=== PATIENT | male | born 1955 | race Caucasian/White ===

== ENCOUNTER 2017-08-29 07:17 | Day surgery (SDC) | payer MEDICAID ==
[2017-08-29] MEDS ORDERED: Lactated Ringers 1,000 ML IV SCH (07:30)
[2017-08-29] MEDS ORDERED: Propofol 200 MG/20 ML SDV ONE (08:39)
[2017-08-29] MEDS ORDERED: fentaNYL 100 MCG/2 ML SDV ONE (08:39)
[2017-08-29] MEDS ORDERED: Midazolam 1 MG/ML 2 ML SDV ONE (08:39)
[2017-08-29] MEDS ORDERED: Sodium Phosphate,Monobasic/Sodium Phosphate,Dibasic Enema 133 ML Bottle RECTAL ONE (09:00)
[2017-08-29] MEDS: Potassium Chloride 20 MEQ Tab.ER PO SCH ×2 (09:47→14:37)
[2017-08-29] MEDS: Potassium Chloride 20 MEQ, Lidocaine 1% 2 ML in Sodium Chloride 0.9% 100 ML IV SCH ×2 (10:08→12:26)
[2017-08-29] MEDS ORDERED: Iohexol 300 MG/ML 30 ML Bottle PO ONE (11:39)
[2017-08-29] MEDS ORDERED: Iopamidol 612 MG/ML 100 ML Bottle IV PRN (11:39)
[2017-08-29] MEDS ORDERED: Sodium Chloride 0.9% 10 ML Syringe FLUSH PRN (11:39)
--- NOTE | 2017-08-29 12:18 | CT ---
Chest, abdomen, pelvis CT. History: Rectal mass. Technique: IV and oral contrast were administered followed by axial imaging from the lung apices exte nding to the chest, abdomen, and pelvis. Coronal images were reconstructed. Total DLP: 993. Comparison: None Findings: Chest: There is a 4 mm pulmonary nodule of the of the right upper lobe anteriorly. The nodule is seen on image 51, series 3. There are left hilar calcified granulomas. No additional nodules are seen. Th ere are no infiltrates or effusions. There is no mediastinal or hilar adenopathy. Abdomen pelvis: There is a large mass demonstrated centrally within the pelvis. The mass abuts an are a of irregular wall thickening involving the left lateral margin of the rectum. The exophytic mass me asures 11.0 x 8.8 x 10.3 cm. The mass is complex. There is heterogeneity with areas of enhancement as well as low attenuation regions. Small collections of air may be within bowel. Contained perforation with abscess cannot be excluded. The appendix is normal. There is no free air. There is mild ascites with fluid accumulating along the lateral margin of the liver. There are no focal hepatic lesions. There is splenomegaly. The spleen measures 18.3 cm. The gallbladd er is unremarkable. The pancreas appears unremarkable. The adrenal glands are normal in size. The kid neys demonstrate symmetric excretion of contrast. There is retroperitoneal adenopathy. The largest no agus lie posterior to the uncinate process of the pancreas. The largest node measures 3.2 cm. No skele celestino lesions are seen. Impression: 1. Wall thickening of the rectum. Contiguous with the wall thickening is a large complex mass with co llections of fluid as well as small pockets of air. The finding may reflect a necrotic neoplasm of th e colon. A contained perforation as well as abscess formation cannot be excluded. The presence of abn ormal enlarged retroperitoneal lymph nodes are highly suspicious for a metastatic malignant process. 2. Mild ascites.
--- NOTE | 2017-08-29 15:17 | OR ---
DATE OF PROCEDURE: 08/29/2017 PREOPERATIVE DIAGNOSES: Diarrhea and weight loss. POSTOPERATIVE DIAGNOSES: Near obstructing rectal tumor, poor colonoscopy prep, diarrhea, and weight loss. PROCEDURES: Attempted colonoscopy into the sigmoid colon, poor colonoscopy prep precluded going higher, and biopsy of near obstructing rectal tumor. SURGEON: En Grande MD. ANESTHESIA: IV anesthesia with monitored anesthesia care. INDICATION: This 62-year-old white male has never had a colonoscopic exam. He is here for his first colonoscopy, he says, because of diarrhea and weight loss. He also has some abdominal discomfort. He did not tolerate the prep well. He says he vomited about a third of it. We gave him a Fleet enema prior to bringing him back for his colonoscopy. I counseled him for a colonoscopy with possible biopsy and/or polypectomy including risks and alternatives, and he gave his informed consent to proceed. DESCRIPTION OF PROCEDURE: The patient was placed in the left lateral decubitus position. IV anesthesia was administered by the Anesthesia Service. Time-out was held. A rectal exam was performed, which was unremarkable. The flexible video Olympus colonoscope was introduced through his anus and up his rectum to a near-obstructing tumor. We were able to get above it, but encountered a wall of stool. We were only able to get into the sigmoid colon because of this. The scope was then withdrawn. We washed off the tumor and then biopsied it. We tattooed the distal end of the tumor. It appeared this was about 5 cm up from the anal verge. The scope was retroflexed in the rectum with the distal rectum appearing unremarkable. The scope was straightened and removed. He tolerated the procedure well. We will obtain CBC, CMP, CEA, CT scan of chest, abdomen and pelvis, and then proceed from there. En Grande MD /[id number] [facility]
== END 2017-08-29 15:20 | disposition home or self-care (01) ==
LOC: JP.SDS 07:17
PROVIDERS: ATTEND Surgery
DX: D12.8 Benign neoplasm of rectum (principal); E11.9 Type 2 diabetes mellitus without complications
CPT/HCPCS: 36415; 45331; 45335; 71260; 74177; 80053; 82378; 84132; 85027; 86850; 86900; 86901; 88305; A9270; J2250; J2704; J3010; J3480; J7030; J7050; J7120; Q9965; Q9967

== ENCOUNTER 2017-09-05 08:58 | Day surgery (SDC) | payer MEDICAID ==
[2017-09-05] MEDS ORDERED: Sodium Phosphate,Monobasic/Sodium Phosphate,Dibasic Enema 133 ML Bottle RECTAL ONE (09:30)
[2017-09-05] MEDS ORDERED: Dextrose 5%-Lactated Ringers 1,000 ML IV SCH (09:45)
[2017-09-05] MEDS ORDERED: Propofol 200 MG/20 ML SDV ONE (10:00)
--- NOTE | 2017-09-09 09:17 | OR ---
DATE OF PROCEDURE: 09/05/2017 PREOPERATIVE DIAGNOSIS: Rectal carcinoma. POSTOPERATIVE DIAGNOSIS: Rectal carcinoma. OPERATIVE PROCEDURE: Flexible sigmoidoscopy with: 1. Biopsies of probable rectal carcinoma (27142). 2. Excision of a portion of probable sigmoid carcinoma by snare technique (10978). ANESTHESIA: IV sedation. INDICATIONS FOR PROCEDURE: A 62-year-old presenting with a recently identified rectal mass, which is almost certainly a carcinoma. His initial biopsies came short of diagnosing carcinoma per se. Given this, to provide a definitive histologic evaluation, the patient is to undergo a flexible sigmoidoscopy with additional biopsies. Potential risks of the procedure including bleeding and perforation were discussed, and the patient wishes to proceed. DETAILS OF PROCEDURE: The patient was taken to the operating room and placed in a left lateral decubitus position. IV sedation was administered. The initial digital rectal exam was remarkable in that, even with IV sedation, the mass could not be palpated. The scope was then passed into the rectum, and at roughly 10 cm from the dentate line, the lower end of the mass was identified. This visually occluded the entire lumen. The scope could be passed around the edge of this into the area above the tumor; however, the tumor had variable amounts of necrosis on its surface. At that point, multiple biopsies were obtained from various points within the mass. There was one large polypoid extension of the mass, which was then encircled with cautery snare and excised by that means. As this was evacuated, it more or less obliterated into multiple small pieces, but this all should be good tissue for histologic review. No significant bleeding was noted at the conclusion of the procedure. It is notable that the mass begins around 10 cm above the dentate line. Given this, with preoperative chemoradiation treatment, this should certainly be a lesion that can be resected with a primary anastomosis. The plan at this point will be to set the patient up to see Medical Oncology this coming Friday. This has already been scheduled, and as discussed with Dr. Fe Perez of the Medical Oncology Department in [place], we will likely initiate early chemotherapy, which hopefully will obviate the need for any diverting colostomy prior to the chemoradiation therapy being completed. Geovanni Malik MD /[id number]
== END 2017-09-05 12:18 | disposition home or self-care (01) ==
LOC: JP.SDS 08:58
PROVIDERS: ATTEND Surgery
DX: C20 Malignant neoplasm of rectum (principal); E11.9 Type 2 diabetes mellitus without complications
CPT/HCPCS: 45331; 45338; 88305; A9270; J2704; J7042

== ENCOUNTER 2017-09-11 07:14 | Inpatient (IN) | payer MEDICAID ==
[~2017-09-11 07:14] MED LIST: Acetaminophen 500 MG Tab PO ONE; Bupivacaine 0.5% 50 ML MDV ONE; Celecoxib 200 MG Cap PO ONE; Lidocaine 1% with EPINEPHrine 1:100,000 50 ML MDV ONE; Scopolamine 1.5 MG Transdermal Patch TRDERM SCH
[2017-09-11] MEDS ORDERED: Dextrose 5%-Lactated Ringers 1,000 ML IV SCH (07:30)
[2017-09-11] MEDS ORDERED: cefOXitin 2 GM in Sodium Chloride 0.9% 50 ML IV ONE (08:45)
[2017-09-11] MEDS ORDERED: Succinylcholine 200 MG/10 ML MDV ONE (08:50)
[2017-09-11] MEDS ORDERED: Rocuronium 50 MG/5 ML Vial ONE (08:50)
[2017-09-11] MEDS ORDERED: Ondansetron 4 MG/2 ML SDV ONE (08:50)
[2017-09-11] MEDS ORDERED: Glycopyrrolate 0.2 MG/ML 5 ML MDV ONE (08:50)
[2017-09-11] MEDS ORDERED: fentaNYL 250 MCG/5 ML SDV ONE ×2 (08:50→11:08)
[2017-09-11] MEDS ORDERED: Dexamethasone 4 MG/ML SDV ONE (08:50)
[2017-09-11] MEDS ORDERED: Neostigmine Methylsulfate 1 MG/ML 5 ML Syringe ONE (08:50)
[2017-09-11] MEDS ORDERED: Propofol 200 MG/20 ML SDV ONE (08:50)
[2017-09-11] MEDS ORDERED: Lactated Ringers 1,000 ML ONE ×2 (09:42→11:10)
[2017-09-11] MEDS ORDERED: Meropenem 500 MG SDV ONE (09:44)
[2017-09-11] MEDS ORDERED: Lidocaine 2% 100 MG/5 ML Syringe IVPUSH ONE (10:15)
[2017-09-11] MEDS ORDERED: Ketamine 500 MG/5 ML MDV IV SCH (10:15)
[2017-09-11] MEDS ORDERED: Ropivacaine 39 ML, Dexamethasone 8 MG, EPINEPHrine 0.4 MG, Sodium Chloride 0.9% 38.6 ML NERVRT SCH ×4 (11:45)
[2017-09-11] MEDS ORDERED: Insulin Aspart 100 Units/ML 3 ML Pen SUBCUT ONE (12:30)
[2017-09-11] MEDS ORDERED: hydrOXYzine HCl 25 MG Tab PO PRN (13:21)
[2017-09-11] MEDS ORDERED: Naloxone 0.4 MG/ML SDV IV PRN (13:26)
[2017-09-11] MEDS: HYDROmorphone/Normal Saline 15 MG/30 ML PCA IV PRN (13:27)
[2017-09-11] MEDS ORDERED: Dextrose 5%-0.9% NaCl with KCl 1,000 ML IV SCH ×2 (13:30→23:18)
[2017-09-11] MEDS: Lidocaine 0.4%/D5W 2 GM/500 ML BAG IV SCH (13:37)
[2017-09-11] MEDS ORDERED: 50% Dextrose in Water 50 ML Syringe IVPUSH PRN (13:42)
[2017-09-11] MEDS ORDERED: Glucagon,Human Recombinant 1 MG Vial IM PRN (13:42)
[2017-09-11] MEDS ORDERED: Glucose Gel 15 GM in 37.5 GM Tube PO PRN (13:42)
[2017-09-11] MEDS ORDERED: hydrOXYzine HCl 100 MG/2 ML SDV IM PRN (14:00)
[2017-09-11] MEDS ORDERED: Ondansetron 4 MG/2 ML SDV IVPUSH PRN (14:00)
[2017-09-11] MEDS: CHROMIUM IV SCH ×6 (14:29→15:58)
[2017-09-11] MEDS: [UNRECOGNIZED DRUG - OTHER] IV SCH ×6 (14:29→15:58)
[2017-09-11] MEDS: MANG IV SCH ×6 (14:29→15:58)
[2017-09-11] MEDS: COPPER IV SCH ×6 (14:29→15:58)
[2017-09-11] MEDS: SELEN IV SCH ×6 (14:29→15:58)
[2017-09-11] MEDS: MVI IV SCH ×6 (14:29→15:58)
[2017-09-11] MEDS: VITAMIN K IV SCH ×6 (14:29→15:58)
[2017-09-11] MEDS: Magnesium Sulfate/Water 2 GM in Premix Bag 1 BAG IV SCH ×2 (14:30→19:57)
[2017-09-11] MEDS: VERIFY SCOPOLAMINE PATCH TOP SCH (14:53)
[2017-09-11] MEDS: cefOXitin 2 GM in Sodium Chloride 0.9% 50 ML IV SCH ×2 (16:01→22:20)
[2017-09-11] MEDS: Pantoprazole 40 MG Vial IVPUSH SCH (16:02)
[2017-09-11] MEDS: metFORMIN 500 MG Tab PO SCH (16:06)
[2017-09-11] MEDS: Insulin Aspart 100 Units/ML 3 ML Pen SUBCUT PRN ×2 (16:19→22:08)
[2017-09-11] MEDS ORDERED: Insulin Detemir 100 Units/ML 3 ML Pen SUBCUT SCH (20:00)
[2017-09-11] MEDS: Tamsulosin 0.4 MG Cap.ER PO SCH (22:13)
[2017-09-12] MEDS: Magnesium Sulfate/Water 2 GM in Premix Bag 1 BAG IV SCH ×4 (01:01→19:46)
[2017-09-12] MEDS: Lidocaine 0.4%/D5W 2 GM/500 ML BAG IV SCH (02:42)
[2017-09-12] MEDS: cefOXitin 2 GM in Sodium Chloride 0.9% 50 ML IV SCH (04:19)
[2017-09-12] MEDS ORDERED: Lactated Ringers 1,000 ML IV SCH (07:45)
[2017-09-12] MEDS: Insulin Aspart 100 Units/ML 3 ML Pen SUBCUT PRN ×2 (08:44→11:47)
[2017-09-12] MEDS: Aspirin 81 MG Tab.EC PO SCH (08:48)
[2017-09-12] MEDS: Glimepiride 2 MG Tab PO SCH (08:48)
[2017-09-12] MEDS: Potassium Chloride 20 MEQ Tab.ER PO SCH ×2 (08:48→17:22)
[2017-09-12] MEDS: metFORMIN 500 MG Tab PO SCH ×2 (08:49→17:22)
[2017-09-12] MEDS: Insulin Detemir 100 Units/ML 3 ML Pen SUBCUT SCH ×2 (08:50→22:02)
[2017-09-12] MEDS: VERIFY SCOPOLAMINE PATCH TOP SCH (08:52)
--- NOTE | 2017-09-12 11:44 | PCM.SURGPN ---
- General Info Date of Service: 09/12/17 Date of Surgery/Procedure: 09/11/17 POD#: 1 Post-Op Diagnosis: obstructive rectal cancer and port-a-cath placement Functional Status: Reports: Pain Controlled, Tolerating Diet (clear ensure), Ambulating, Urinating - Review of Systems General: Reports: Weakness (baseline for past 1.5mo), Fatigue (baseline for past 1.5mo), Malaise (baseline for past 1.5mo), Appetite (lack of appetite) Pulmonary: Reports: No Symptoms Cardiovascular: Reports: No Symptoms Gastrointestinal: Reports: Abdominal Pain (incisional pain), Decreased Appetite - Patient Data Vitals - Most Recent: Last Vital Signs Temp 96.9 F 09/12/17 11:00 Pulse 78 09/12/17 11:00 Resp 18 09/12/17 11:00 BP 98/60 09/12/17 11:00 Pulse Ox 95 09/12/17 11:00 Weight - Most Recent: 170 lb 0.01 oz I&O - Last 24 Hours: Intake & Output 09/11/17 09/12/17 09/12/17 22:59 06:59 14:59 Intake Total 504 1710 200 Output Total 900 1150 250 Balance -396 560 -50 Lab Results Last 24 Hrs: Laboratory Results - last 24 hr 09/12/17 Range/Units 04:18 Sodium 140 (140-148) mmol/L Potassium 4.5 (3.6-5.2) mmol/L Chloride 104 (100-108) mmol/L Carbon Dioxide 32 (21-32) mmol/L Anion Gap 4.5 L (5.0-14.0) mmol/L BUN 13 D (7-18) mg/dL Creatinine 0.6 L (0.8-1.3) mg/dL Est Cr Clr Drug Dosing 135.52 mL/min Estimated GFR (MDRD) > 60 (>60) Glucose 280 H (74-106) mg/dL Calcium 8.3 L (8.5-10.1) mg/dL Phosphorus 3.4 (2.5-4.9) mg/dL Med Orders - Current: Current Medications Aspirin (Halfprin) 81 mg PO DAILY OSMAN Last Admin: 09/12/17 08:48 Dose: 81 mg Dextrose (Glutose 15) 15 gm PO ASDIRECTED PRN PRN Reason: HYPOGLYCEMIA Dextrose/Water (Dextrose 50% In Water) 50 ml IVPUSH ASDIRECTED PRN PRN Reason: HYPOGLYCEMIA Glimepiride (Amaryl) 1 mg PO DAILY ON LICENSE OF [facility] Last Admin: 09/12/17 08:48 Dose: 1 mg Glucagon (Glucagen) 1 mg IM ASDIRECTED PRN PRN Reason: HYPOGLYCEMIA Hydromorphone HCl (Dilaudid Deck Lid Fitter 15 Mg In Ns 30 Ml) 0 mg IV ASDIRECTED PRN; Protocol PRN Reason: Pain Last Admin: 09/11/17 13:27 Dose: 15 mg Hydroxyzine HCl (Vistaril) 100 mg IM Q4H PRN PRN Reason: pain Hydroxyzine HCl (Atarax) 100 mg PO Q4H PRN PRN Reason: Pain Lidocaine HCl/Dextrose (Lidocaine 2 Gm/D5w 500 Ml) 2 gm in 500 mls @ 30 mls/hr IV .[id number] ON LICENSE OF [facility] PRN Reason: 2 MG/MIN Stop: 09/12/17 13:00 Last Admin: 09/12/17 02:42 Dose: 2 mg/min, 30 mls/hr Magnesium Sulfate 2 gm/ Premix 50 mls @ 25 mls/hr IV Q6H ON LICENSE OF [facility] Stop: 09/14/17 09:59 Last Admin: 09/12/17 08:46 Dose: 25 mls/hr Lactated Ringer's (Ringers, Lactated) 1,000 mls @ 100 mls/hr IV ASDIRECTED ON LICENSE OF [facility] Last Admin: 09/12/17 08:46 Dose: 100 mls/hr Multivitamins/Minerals 10 ml/Chromium/Copper/Manganese/Seleni/Zn 1 ml/ Lactated Ringer's 1,011 mls @ 100 mls/hr IV DAILY@1600 ON LICENSE OF [facility] Insulin Aspart (Novolog) 0 unit SUBCUT ASDIRECTED PRN; Protocol PRN Reason: LOW CORRECTIONAL DOSE Last Admin: 09/12/17 08:44 Dose: 4 units Insulin Detemir (Levemir) 20 unit SUBCUT BID ON LICENSE OF [facility] Stop: 09/12/17 21:01 Last Admin: 09/12/17 08:50 Dose: 20 units Metformin HCl (Glucophage) 1,000 mg PO BIDMEALS ON LICENSE OF [facility] Last Admin: 09/12/17 08:49 Dose: 1,000 mg Naloxone HCl (Narcan) 0.1 mg IV ASDIRECTED PRN PRN Reason: decreased respiratory rate Verify Scopolamine (Patch) 0 each TOP DAILY ON LICENSE OF [facility] Last Admin: 09/12/17 08:52 Dose: Not Given Ondansetron HCl (Zofran) 4 mg IVPUSH Q4H PRN PRN Reason: Nausea/Vomiting Pantoprazole Sodium (Protonix Iv) 40 mg IVPUSH Q24H ON LICENSE OF [facility] Last Admin: 09/11/17 16:02 Dose: 40 mg Potassium Chloride (Klor-Con M20) 20 meq PO BIDMEALS ON LICENSE OF [facility] Last Admin: 09/12/17 08:48 Dose: 20 meq Probenecid (Probenecid) 500 mg PO DAILY ON LICENSE OF [facility] Last Admin: 09/12/17 11:16 Dose: 500 mg Scopolamine (Transderm-Scop) 1.5 mg TRDERM Q72H ON LICENSE OF [facility] Stop: 09/13/17 09:00 Last Admin: 09/11/17 07:46 Dose: 1.5 mg Simvastatin (Zocor) 40 mg PO BEDTIME ON LICENSE OF [facility] Tamsulosin HCl (Flomax) 0.4 mg PO BEDTIME ON LICENSE OF [facility] Last Admin: 09/11/17 22:13 Dose: 0.4 mg Discontinued Medications Acetaminophen (Tylenol Extra Strength) 1,000 mg PO ONETIME ONE Stop: 09/11/17 07:01 Last Admin: 09/11/17 07:47 Dose: 1,000 mg Bupivacaine HCl (Marcaine 0.5%) Confirm Administered Dose 50 ml .ROUTE .STK-MED ONE Stop: 09/11/17 06:56 Last Admin: 09/11/17 11:34 Dose: 10 ml Celecoxib (Celebrex) 200 mg PO ONETIME ONE Stop: 09/11/17 07:01 Last Admin: 09/11/17 07:46 Dose: 200 mg Ropivacaine 39 ml/Dexamethasone 8 mg/Epinephrine HCl 0.4 mg/ Sodium Chloride 38.6 ml 0 ml NERVRT ASDIRECTED ON LICENSE OF [facility] Last Admin: 09/11/17 11:00 Dose: 80 syringe Dexamethasone (Dexamethasone) Confirm Administered Dose 4 mg .ROUTE .STK-MED ONE Stop: 09/11/17 08:51 Fentanyl (Sublimaze) Confirm Administered Dose 250 mcg .ROUTE .STK-MED ONE Stop: 09/11/17 08:51 Fentanyl (Sublimaze) Confirm Administered Dose 250 mcg .ROUTE .STK-MED ONE Stop: 09/11/17 11:09 Glycopyrrolate (Robinul) Confirm Administered Dose 1 mg .ROUTE .[facility] ONE Stop: 09/11/17 08:51 Heparin Sodium (Porcine) (Heparin Lock Flush 100 Units/Ml) Confirm Administered Dose 1,000 units .ROUTE .[facility] ONE Stop: 09/11/17 06:56 Ketamine HCl 100 mg/ Sodium (Chloride) 100 mls @ 21.9 mls/hr IV ASDIRECTED ON LICENSE OF [facility] PRN Reason: 5 MCG/KG/MIN Cefoxitin Sodium 2 gm/ Sodium (Chloride) 50 mls @ 100 mls/hr IV ONETIME ONE Stop: 09/11/17 09:14 Last Admin: 09/11/17 09:45 Dose: 100 mls/hr Dextrose/Lactated Ringer's (Dextrose 5%-Lactated Ringers) 1,000 mls @ 100 mls/ [facility] Last Admin: 09/11/17 07:46 Dose: 100 mls/hr Lactated Ringer's (Ringers, Lactated) Confirm Administered Dose 1,000 mls @ as directed .ROUTE .[facility] ONE Stop: 09/11/17 09:43 Lactated Ringer's (Ringers, Lactated) Confirm Administered Dose 1,000 mls @ as directed .ROUTE .[facility] ONE Stop: 09/11/17 11:11 Cefoxitin Sodium 2 gm/ Sodium (Chloride) 50 mls @ 100 mls/hr IV Q6H ON LICENSE OF [facility] Stop: 09/12/17 04:29 Last Admin: 09/12/17 04:19 Dose: 100 mls/hr Potassium Chloride/Dextrose/Sod Cl (D5 Ns With 20 Meq Kcl) 1,000 mls @ 175 mls/ hr IV ASDIRECTED ON LICENSE OF [facility] Last Admin: 09/11/17 19:57 Dose: 175 mls/hr Multivitamins/Minerals 10 ml/Chromium/Copper/Manganese/Seleni/Zn 1 ml/ Potassium Chloride/Dextrose/Sod Cl 1,011 mls @ 175 mls/hr IV DAILY@1600 ON LICENSE OF [facility] Last Admin: 09/11/17 15:58 Dose: Not Given Potassium Chloride/Dextrose/Sod Cl (D5 Ns With 20 Meq Kcl) 1,000 mls @ 25 mls/ hr IV ASDIRECTED ON LICENSE OF [facility] PRN Reason: KVO Insulin Aspart (Novolog) 12 unit SUBCUT ONETIME ONE Stop: 09/11/17 12:31 Last Admin: 09/11/17 12:24 Dose: 12 units Insulin Detemir (Levemir) 10 unit SUBCUT BID@0800,2000 ON LICENSE OF [facility] Last Admin: 09/11/17 22:08 Dose: 10 units Ketamine HCl (Ketalar) 38 mg IV ASDIRECTED ON LICENSE OF [facility] Lidocaine HCl (Xylocaine 2%) 110 mg IVPUSH ONETIME ONE Stop: 09/11/17 10:16 Last Admin: 09/11/17 13:38 Dose: Not Given Lidocaine/Epinephrine (Xylocaine 1% With Epinephrine 1:100,000) Confirm Administered Dose 50 ml .ROUTE .STK-MED ONE Stop: 09/11/17 06:56 Last Admin: 09/11/17 11:34 Dose: 10 ml Meropenem (Merrem) Confirm Administered Dose 500 mg .ROUTE .STK-MED ONE Stop: 09/11/17 09:45 Last Admin: 09/11/17 11:35 Dose: 500 mg Neostigmine Methylsulfate (Neostigmine) Confirm Administered Dose 5 mg .ROUTE .STK-MED ONE Stop: 09/11/17 08:51 Ondansetron HCl (Zofran) Confirm Administered Dose 4 mg .ROUTE .STK-MED ONE Stop: 09/11/17 08:51 Propofol (Diprivan 20 Ml) Confirm Administered Dose 200 mg .ROUTE .STK-MED ONE Stop: 09/11/17 08:51 Rocuronium [place]ague (Zemuron) Confirm Administered Dose 50 mg .ROUTE .STK-MED ONE Stop: 09/11/17 08:51 Sodium Chloride (Normal Saline) 500 ml IRR .STK-MED ONE Stop: 09/11/17 11:36 Last Admin: 09/11/17 11:35 Dose: 500 ml Succinylcholine Chloride (Quelicin) Confirm Administered Dose 200 mg .ROUTE .STK -MED ONE Stop: 09/11/17 08:51 - Exam Wound/Incisions: Healing Well General: Alert, Oriented, No Acute Distress HEENT: Scleral Icterus (slight) Lungs: Clear to Auscultation, Normal Respiratory Effort Cardiovascular: Regular Rate, Regular Rhythm, No Murmurs GI/Abdominal Exam: Tender, Mass (large mass left lower quadrant (palpated while pt under anesthesia, therefore unsure if tender to palpation) ), Other ( diverting loop sigmoid colostomy placed) Skin: Other (6mm hyperpigmented black/blue mole of right nasal alar) - Problem List Review Problem List Initiated/Reviewed/Updated: Yes - My Orders Last 24 Hours: Active Orders 24 hr Category Date Time Status Patient Status [ADT] Routine ADT 09/11/17 13:25 Active Ambulate [RC] QID Care 09/11/17 20:00 Active Cardiac Monitoring [RC] .As Directed Care 09/11/17 13:25 Active Communication Order [RC] ASDIRECTED Care 09/11/17 13:37 Active Communication Order [RC] ASDIRECTED Care 09/11/17 13:45 Active Communication Order [RC] ASDIRECTED Care 09/12/17 09:00 Active Insert Urinary Catheter [OM.PC] Q24H Care 09/11/17 13:45 Ordered Turn, Cough, Deep Breathe [RC] .PRN Care 09/11/17 13:37 Active Up to Chair [RC] QID Care 09/11/17 20:00 Active Urinary Catheter Assessment [RC] ASDIRECTED Care 09/11/17 13:39 Active Urinary Catheter Removal [RC] PER UNIT ROUTINE Care 09/12/17 05:00 Active Vital Signs [RC] Q4H Care 09/12/17 08:15 Active Consult to Electrical Repairer [CONS] Routine Cons 09/12/17 07:38 Active Consult to Electrical Repairer [CONS] Routine Cons 09/12/17 09:00 Active Nothing Per Oral Diet [DIET] Diet 09/11/17 Dinner Active Regular Diet [DIET] Diet 09/12/17 Breakfast Active COMPREHENSIVE METABOLIC PN,CMP [CHEM] Timed Lab 09/13/17 04:00 Ordered GLUCOSE POC LAB TO COLLECT [POC] Q6H Lab 09/12/17 16:00 Ordered GLUCOSE POC LAB TO COLLECT [POC] Q6H Lab 09/12/17 22:00 Ordered GLUCOSE POC LAB TO COLLECT [POC] Q6H Lab 09/13/17 04:00 Ordered GLUCOSE POC LAB TO COLLECT [POC] Q6H Lab 09/13/17 10:00 Ordered GLUCOSE POC LAB TO COLLECT [POC] Q6H Lab 09/13/17 16:00 Ordered GLUCOSE POC LAB TO COLLECT [POC] Q6H Lab 09/13/17 22:00 Ordered GLUCOSE POC LAB TO COLLECT [POC] Q6H Lab 09/14/17 04:00 Ordered GLUCOSE POC LAB TO COLLECT [POC] Q6H Lab 09/14/17 10:00 Ordered GLUCOSE POC LAB TO COLLECT [POC] Q6H Lab 09/14/17 16:00 Ordered GLUCOSE POC LAB TO COLLECT [POC] Q6H Lab 09/14/17 22:00 Ordered GLUCOSE POC LAB TO COLLECT [POC] Q6H Lab 09/15/17 04:00 Ordered GLUCOSE POC LAB TO COLLECT [POC] Q6H Lab 09/15/17 10:00 Ordered GLUCOSE POC LAB TO COLLECT [POC] Q6H Lab 09/15/17 16:00 Ordered GLUCOSE POC LAB TO COLLECT [POC] Q6H Lab 09/15/17 22:00 Ordered PHOSPHORUS [CHEM] Timed Lab 09/13/17 04:00 Ordered Aspirin [Halfprin] Med 09/12/17 09:00 Active 81 mg PO DAILY Dextrose 50% in Water Med 09/11/17 13:42 Active 50 ml IVPUSH ASDIRECTED PRN Dextrose [Glutose 15] Med 09/11/17 13:42 Active 15 gm PO ASDIRECTED PRN Glimepiride [Amaryl] Med 09/12/17 09:00 Active 1 mg PO DAILY Glucagon,Human Recombinant [GlucaGen] Med 09/11/17 13:42 Active 1 mg IM ASDIRECTED PRN Insulin Aspart [NovoLOG] Med 09/11/17 13:42 Active 0 unit SUBCUT ASDIRECTED PRN Insulin Detemir [Levemir] Med 09/12/17 09:00 Active 20 unit SUBCUT BID Lactated Ringers [Ringers, Lactated] 1,000 ml Med 09/12/17 07:45 Active IV ASDIRECTED MVI, Adult with Vitamin K [Infuvite Adult] 10 ml Med 09/12/17 16:00 Active Chromium/Copper/Aurelio/Selen/Zn [Multitrace-5 Concentrate ] 1 ml Lactated Ringers [Ringers, Lactated] 1,000 ml IV DAILY@1600 Magnesium Sulfate/Water [Magnesium Sulfate 2 GM in Med 09/11/17 14:00 Active Water 50 ML] 2 gm Premix Bag 1 bag IV Q6H Naloxone [Narcan] Med 09/11/17 13:26 Active 0.1 mg IV ASDIRECTED PRN Non-Formulary Medication [NF Drug] Med 09/11/17 14:00 Active 0 each TOP DAILY Ondansetron [Zofran] Med 09/11/17 14:00 Active 4 mg IVPUSH Q4H PRN Pantoprazole [ProTONIX IV] Med 09/11/17 16:00 Active 40 mg IVPUSH Q24H Potassium Chloride [Klor-Con M20] Med 09/12/17 08:00 Active 20 meq PO BIDMEALS Probenecid Med 09/12/17 09:00 Active 500 mg PO DAILY Simvastatin [Zocor] Med 09/12/17 21:00 Active 40 mg PO BEDTIME Tamsulosin [Flomax] Med 09/11/17 21:00 Active 0.4 mg PO BEDTIME hydrOXYzine HCl [Atarax] Med 09/11/17 13:21 Active 100 mg PO Q4H PRN hydrOXYzine HCl [Vistaril] Med 09/11/17 14:00 Active 100 mg IM Q4H PRN metFORMIN [Glucophage] Med 09/11/17 17:00 Active 1,000 mg PO BIDMEALS Pulse Oximetry Continuous Monitoring [OM.PC] Routine Oth 09/11/17 13:37 Ordered Sequential Compression Device [OM.PC] Routine Oth 09/11/17 13:37 Ordered Medication Orders Aspirin (Halfprin) 81 mg PO DAILY ON LICENSE OF [facility] Last Admin: 09/12/17 08:48 Dose: 81 mg Dextrose (Glutose 15) 15 gm PO ASDIRECTED PRN PRN Reason: HYPOGLYCEMIA Dextrose/Water (Dextrose 50% In Water) 50 ml IVPUSH ASDIRECTED PRN PRN Reason: HYPOGLYCEMIA Glimepiride (Amaryl) 1 mg PO DAILY ON LICENSE OF [facility] Last Admin: 09/12/17 08:48 Dose: 1 mg Glucagon (Glucagen) 1 mg IM ASDIRECTED PRN PRN Reason: HYPOGLYCEMIA Hydromorphone HCl (Dilaudid Deck Lid Fitter 15 Mg In Ns 30 Ml) 0 mg IV ASDIRECTED PRN; Protocol PRN Reason: Pain Last Admin: 09/11/17 13:27 Dose: 15 mg Hydroxyzine HCl (Vistaril) 100 mg IM Q4H PRN PRN Reason: pain Hydroxyzine HCl (Atarax) 100 mg PO Q4H PRN PRN Reason: Pain Lidocaine HCl/Dextrose (Lidocaine 2 Gm/D5w 500 Ml) 2 gm in 500 mls @ 30 mls/hr IV .[id number] ON LICENSE OF [facility] PRN Reason: 2 MG/MIN Stop: 09/12/17 13:00 Last Admin: 09/12/17 02:42 Dose: 2 mg/min, 30 mls/hr Infusion: 09/12/17 02:42 Dose: 2 mg/min, 30 mls/hr Admin: 09/11/17 13:37 Dose: 2 mg/min, 30 mls/hr Magnesium Sulfate 2 gm/ Premix 50 mls @ 25 mls/hr IV Q6H ON LICENSE OF [facility] Stop: 09/14/17 09:59 Last Admin: 09/12/17 08:46 Dose: 25 mls/hr Infusion: 09/12/17 03:01 Dose: 25 mls/hr Admin: 09/12/17 01:01 Dose: 25 mls/hr Infusion: 09/11/17 21:57 Dose: 25 mls/hr Admin: 09/11/17 19:57 Dose: 25 mls/hr Infusion: 09/11/17 16:30 Dose: 25 mls/hr Admin: 09/11/17 14:30 Dose: 25 mls/hr Lactated Ringer's (Ringers, Lactated) 1,000 mls @ 100 mls/hr IV ASDIRECTED ON LICENSE OF [facility] Last Admin: 09/12/17 08:46 Dose: 100 mls/hr Multivitamins/Minerals 10 ml/Chromium/Copper/Manganese/Seleni/Zn 1 ml/ Lactated Ringer's 1,011 mls @ 100 mls/hr IV DAILY@1600 ON LICENSE OF [facility] Insulin Aspart (Novolog) 0 unit SUBCUT ASDIRECTED PRN; Protocol PRN Reason: LOW CORRECTIONAL DOSE Last Admin: 09/12/17 08:44 Dose: 4 units Admin: 09/11/17 22:08 Dose: 15 units Admin: 09/11/17 16:19 Dose: 4 units Insulin Detemir (Levemir) 20 unit SUBCUT BID ON LICENSE OF [facility] Stop: 09/12/17 21:01 Last Admin: 09/12/17 08:50 Dose: 20 units Metformin HCl (Glucophage) 1,000 mg PO BIDMEALS ON LICENSE OF [facility] Last Admin: 09/12/17 08:49 Dose: 1,000 mg Admin: 09/11/17 16:06 Dose: 1,000 mg Naloxone HCl (Narcan) 0.1 mg IV ASDIRECTED PRN PRN Reason: decreased respiratory rate Verify Scopolamine (Patch) 0 each TOP DAILY ON LICENSE OF [facility] Last Admin: 09/12/17 08:52 Dose: Admin: 09/11/17 14:53 Dose: Ondansetron HCl (Zofran) 4 mg IVPUSH Q4H PRN PRN Reason: Nausea/Vomiting Pantoprazole Sodium (Protonix Iv) 40 mg IVPUSH Q24H ON LICENSE OF [facility] Last Admin: 09/11/17 16:02 Dose: 40 mg Potassium Chloride (Klor-Con M20) 20 meq PO BIDMEALS ON LICENSE OF [facility] Last Admin: 09/12/17 08:48 Dose: 20 meq Probenecid (Probenecid) 500 mg PO DAILY ON LICENSE OF [facility] Last Admin: 09/12/17 11:16 Dose: 500 mg Scopolamine (Transderm-Scop) 1.5 mg TRDERM Q72H ON LICENSE OF [facility] Stop: 09/13/17 09:00 Last Admin: 09/11/17 07:46 Dose: 1.5 mg Simvastatin (Zocor) 40 mg PO BEDTIME OSMAN Tamsulosin HCl (Flomax) 0.4 mg PO BEDTIME ON LICENSE OF [facility] Last Admin: 09/11/17 22:13 Dose: 0.4 mg - Assessment Assessment (Free Text/Narrative):: Hever ("Gorge") Brian is a 62 year old male POD1 s/p port-a-cath placement and diverting loop sigmoid colostomy. He is doing well today with no acute concerns. He was hypothermic and hyperglycemic yesterday after the procedure and into the morning, but is now normothermic (though still hyperglycemic). His [place] catheter was removed this morning, which frustrates him because when he has to urinate, "[he has] to go quickly," and waiting for the nurse sometimes takes too long. He feels dizzy/lightheaded when ambulating, which he has been doing with the assistance of two nurses. He is urinating well. He does not have much of an appetite, but is willing to drink Clear Ensure. He is eager to hear the results of the liver biopsy. Pain is well-controlled with COMBINATION MAN pump. - Plan Plan (Free Text/Narrative):: Fluids: D5LR at 50mL/hr [place]: out (removed this AM) Colostomy output: scant red-tinged liquid Diet: regular with Clear Ensure between meals; had dietary consult today; see Medina Choe's note Ambulation: up with nurse's assistance Pain: COMBINATION MAN Diabetes: 20mg Levemir q12 hours; continue Metforming, resume glipizide Labs: repeat BMP, Mg, and Phos tomorrow AM
[2017-09-12] MEDS: MVI, Adult with Vitamin K 10 ML, Chromium/Copper/Mang/Selen/Zn 1 ML in Lactated Ringers... IV SCH ×3 (17:21)
[2017-09-12] MEDS: Pantoprazole 40 MG Vial IVPUSH SCH (17:22)
[2017-09-12] MEDS: Simvastatin 20 MG Tab PO SCH (22:10)
[2017-09-12] MEDS: Tamsulosin 0.4 MG Cap.ER PO SCH (22:10)
[2017-09-13] MEDS: Dextrose 5%-Lactated Ringers 1,000 ML IV SCH ×2 (01:10→11:51)
[2017-09-13] MEDS: Magnesium Sulfate/Water 2 GM in Premix Bag 1 BAG IV SCH ×4 (01:10→20:27)
[2017-09-13] MEDS: Aspirin 81 MG Tab.EC PO SCH (08:50)
[2017-09-13] MEDS: metFORMIN 500 MG Tab PO SCH ×2 (08:50→18:09)
[2017-09-13] MEDS: Glimepiride 2 MG Tab PO SCH (08:50)
[2017-09-13] MEDS: Potassium Chloride 20 MEQ Tab.ER PO SCH ×2 (08:50→18:10)
[2017-09-13] MEDS: Enoxaparin 40 MG/0.4 ML Syringe SUBCUT SCH (09:56)
[2017-09-13] MEDS: Megestrol Susp 40 MG/ML ML (240 ML Bottle) PO SCH (09:56)
[2017-09-13] MEDS: VERIFY SCOPOLAMINE PATCH TOP SCH (09:57)
[2017-09-13] MEDS: Potassium Phosphates 20 MMOLE, Lidocaine 1% 2 ML in Sodium Chloride 0.9% 150 ML IV SCH ×3 (10:03→18:57)
[2017-09-13] MEDS: Insulin Aspart 100 Units/ML 3 ML Pen SUBCUT PRN ×3 (11:51→23:08)
--- NOTE | 2017-09-13 15:31 | PN ---
DATE OF SERVICE: 09/13/2017 The patient has been afebrile with stable vital signs. Ostomy began working yesterday and oral intake was fairly good. We will continue with regular diet and add some Glucerna today along with Megace to try to increase his appetite. Megace may make him slightly hypercoagulable, so we will add the Lovenox in addition to the SCDs while he is in bed. His albumin is quite low, and we will supplement that over the next couple of days with 5 doses of 50 grams to be given. His potassium is marginally low once again, we will supplement today with K-Phos. Blood sugars were continuing to be low last night. We will discontinue the Levemir and go with the previously used metformin and Amaryl. Geovanni Malik MD /[id number]
[2017-09-13] MEDS: Pantoprazole 40 MG Vial IVPUSH SCH (16:31)
[2017-09-13] MEDS: MVI, Adult with Vitamin K 10 ML, Chromium/Copper/Mang/Selen/Zn 1 ML in Lactated Ringers... IV SCH ×3 (18:13)
[2017-09-13] MEDS: Simvastatin 20 MG Tab PO SCH (20:27)
[2017-09-13] MEDS: Tamsulosin 0.4 MG Cap.ER PO SCH (20:27)
[2017-09-14] MEDS: HYDROmorphone/Normal Saline 15 MG/30 ML PCA IV PRN (00:31)
[2017-09-14] MEDS: Magnesium Sulfate/Water 2 GM in Premix Bag 1 BAG IV SCH ×2 (01:33→10:01)
[2017-09-14] MEDS: Dextrose 5%-Lactated Ringers 1,000 ML IV SCH (08:18)
[2017-09-14] MEDS ORDERED: Bisacodyl 5 MG Tab PO ONE (09:00)
[2017-09-14] MEDS ORDERED: Potassium Chloride 20 MEQ Tab.ER PO ONE (09:00)
[2017-09-14] MEDS ORDERED: Magnesium Hydroxide 400 MG/5 ML Susp 30 ML Cup PO ONE (09:30)
[2017-09-14] MEDS: metFORMIN 500 MG Tab PO SCH ×2 (10:01→17:05)
[2017-09-14] MEDS: Potassium Chloride 20 MEQ Tab.ER PO SCH ×2 (10:02→17:05)
[2017-09-14] MEDS: Aspirin 81 MG Tab.EC PO SCH (10:03)
[2017-09-14] MEDS: Glimepiride 2 MG Tab PO SCH (10:03)
[2017-09-14] MEDS: Enoxaparin 40 MG/0.4 ML Syringe SUBCUT SCH (10:04)
[2017-09-14] MEDS: Megestrol Susp 40 MG/ML ML (240 ML Bottle) PO SCH (10:04)
[2017-09-14] MEDS: VERIFY SCOPOLAMINE PATCH TOP SCH (10:04)
[2017-09-14] MEDS: Acetaminophen/oxyCODONE 325-5 MG Tab PO PRN ×2 (10:32→14:42)
--- NOTE | 2017-09-14 12:58 | PN ---
DATE OF SERVICE: 09/14/2017 The patient has been afebrile with stable vital signs. Colostomy continues to function fairly well, but not a whole lot over the last 24 hours. Oral intake has been fairly good. We will continue the albumin supplementation, we may give some additional KCl today, continue the magnesium supplementation. Recheck some labs in the morning. He will be receiving ongoing colostomy teaching along with his and we will tentatively plan for discharge home tomorrow. We may set him up to see Medical Oncology at the first available appointment following discharge. Geovanni Malik MD /[id number]
[2017-09-14] MEDS: Insulin Aspart 100 Units/ML 3 ML Pen SUBCUT PRN ×3 (14:25→21:14)
[2017-09-14] MEDS: Pantoprazole 40 MG Vial IVPUSH SCH (17:07)
[2017-09-14] MEDS: MVI, Adult with Vitamin K 10 ML, Chromium/Copper/Mang/Selen/Zn 1 ML in Lactated Ringers... IV SCH ×3 (18:49)
[2017-09-14] MEDS: Simvastatin 20 MG Tab PO SCH (20:20)
[2017-09-14] MEDS: Tamsulosin 0.4 MG Cap.ER PO SCH (20:20)
--- NOTE | 2017-09-15 08:40 | OR ---
DATE OF PROCEDURE: 09/11/2017 PREOPERATIVE DIAGNOSIS: Advanced rectal carcinoma with high-grade partial obstruction. POSTOPERATIVE DIAGNOSES: 1. Advanced rectal carcinoma with high-grade partial obstruction. 2. Liver with multiple small white nodules (possibly related to metastatic disease versus benign process). OPERATIVE PROCEDURES: 1. Insertion of Bard port via left subclavian vein approach (39532). 2. Diagnostic laparoscopy with: a. Formation of loop sigmoid colostomy (53620). b. Wedge biopsy left lobe of liver (85838). ASSISTANTS: Susie Reynolds PA-C, and HARVEY Hurst3. ANESTHESIA: General plus TAP block. INDICATIONS: This is a 62-year-old recently presenting with a large rectal adenocarcinoma with high-grade partial obstruction. After preoperative evaluation with Medical and Radiation Oncology, the plan at this point will be to proceed with placement of a diverting colostomy, along with a port to facilitate early initiation of chemotherapy. The plan is to proceed with a diagnostic laparoscopy with laparotomy if necessary and formation of the loop sigmoid colostomy. Any additional staging opportunities will be used as well, for example, any liver pathology or obvious sarahi disease that is easily accessible by laparoscopic approach might be biopsied, along with placement of the port. Potential risks of the procedure including bleeding, infection, injury to the underlying viscera, as well as possibility of cardiopulmonary, septic, or hemorrhagic complications leading to were discussed, and the patient wishes to proceed. DETAILS OF PROCEDURE: After general endotracheal anesthesia was induced, IV ketamine was initiated and run for the duration of the course and a bolus of IV lidocaine followed by 2 mg/minute infusion continued, which will continue for 24 hours postoperatively. This would be followed by a TAP block end at the mid and lower abdomen. The upper chest and neck areas were then prepped and draped, and the left subclavian vein cannulated. A guidewire was passed and manipulated into the superior vena cava. A transverse infraclavicular incision was then made and carried down through the skin and subcutaneous tissue, and a pocket for the port was then made behind the pectoralis major fascia bluntly. The port was then assembled and flushed with heparinized saline and placed into the pocket, and the catheter cut such that the tip would lie in the superior vena cava. The Bard port catheter was then delivered with the introducer and peel-away catheter without difficulty, and the incision was closed with 2 layers of 3-0 Vicryl stitch, along with 4-0 Vicryl subcuticular stitch and Steri-Strips applied. Fluoroscopy confirmed the tip of the catheter to be in the upper right atrium. At this point, the abdomen was prepped and draped. A Tipton catheter had been inserted, in the right mid abdomen, a transverse incision was made, and the peritoneal cavity was entered under direct vision with an Optiview trocar and inflated to 15 mmHg pressure with CO2. Laparoscope was then reinserted. No underlying trocar insertion site injuries were seen. Following this, bilateral transversus abdominis plane blocks were placed. These were placed more or less just above the anterior superior iliac spine, using the standard solution, which should provide coverage across the mid and lower abdomen. Once these were placed bilaterally, attention was taken to general exploration. Two additional 5 mm ports were then placed, one in the right lower quadrant and one in the right upper quadrant. A small amount of clear peritoneal fluid was seen, and this was evacuated and sent for cytology. There was no obvious peritoneal seeding of any tumor. The sigmoid colon was, as expected, quite distended due to the partial obstruction just beyond it. Visualization of the retroperitoneum upon elevation of the liver showed this to be quite boggy and it was felt to be somewhat problematic in terms of risk of significant bleeding should there be dissection in that area, and we opted not to try to get any biopsies of the retroperitoneal lymph nodes. The liver did show some multiple white nodules. These might be bile duct hamartomas or other benign process, but to rule out early malignant changes, one of these was excised by means of wedge biopsy in the inferior aspect of the left lobe of the liver. This was accomplished with a combination of Harmonic scalpel dissection and cautery, and wedge biopsy was then delivered from the field. Good hemostasis was confirmed at that point. At this point, the most free point of the sigmoid colon was identified and a suture placed on its antimesenteric border with 3-0 Vicryl stitch. At that point, the laparoscopic phase concluded with removal of the trocars. The 12 mm port was closed with 0 Vicryl stitch at the fascia level, and the skin on each of the stitches were closed with 4-0 Vicryl stitch. That area of the abdomen was then covered, at the previously marked location in the left lower abdomen, roughly a third of distance from the umbilicus to the anterior superior iliac spine. The abdomen has been marked preoperatively in sitting, supine, and standing positions to confirm adequate location for the ostomy appliance. A disc of skin was then excised, along with small amount of underlying subcutaneous tissue. A cross-type incision in the anterior rectus sheath was then accomplished, and the rectus muscles bluntly spread. The peritoneum was then divided as well, and then spread enough that it would admit the loop of sigmoid colon upward at the point where the suture was identified, and that was then pulled up into the ostomy above the level of the skin to help fix the ostomy in position. Initially, a #2 Vicryl stitch was placed in the mesentery just behind the center of the loop of colon and then sutured to the fascia on each side, thus providing a mechanism to keep the colon elevated at that level. Following this, several interrupted seromuscular stitches to the adjacent fascia were placed circumferentially. At that point, a transverse opening in the colon was accomplished with electrocautery. The colostomy was then matured at the skin level with a circumferential running locked 3-0 Vicryl stitch, taking bites along the colon, just below the free edge of the open bowel, thus creating a ridge of colon at the colostomy fixation site. Once this was completed, the ostomy was digitally inspected, and there were satisfactory openings in both proximal and distal directions. An ostomy appliance was then applied. The patient was then taken to the recovery room in a satisfactory condition. There were no evident complications. Physician respiratory care assistant, Susie Reynolds, played an essential role in assisting in this case, helping to position the patient, retract structures as needed, as well as suturing and cutting sutures when indicated. Her presence improved patient safety and decreased the operative time. Geovanni Malik MD /[id number]
[2017-09-15] MEDS: Acetaminophen/oxyCODONE 325-5 MG Tab PO PRN (09:06)
[2017-09-15] MEDS ORDERED: Pantoprazole 40 MG Tab.CR PO SCH (16:00)
--- NOTE | 2017-09-16 04:07 | DISCH ---
ADMISSION DIAGNOSES: 1. Obstructive rectal cancer. 2. Weakness. 3. Malaise. 4. Lack of appetite. 5. Weight loss 40 pounds. 6. Hyperuricemia. 7. Dyslipidemia. 8. Type 2 diabetes. DISCHARGE DIAGNOSES: 1. Insertion of band port left subclavian. 2. Diagnostic laparoscopy with formation of loop segmental colostomy, wedge biopsy left lobe of the liver, and for high-grade partial obstruction secondary to advanced rectal cancer. 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 Date of surgery 09/11/2017. HISTORY: Hever Torres is a 62-year-old male who presented with high-grade rectal cancer after preoperative evaluation, discussion of possible risks and possible complications, he wished to proceed with surgical procedure. HOSPITAL COURSE: Hever had his surgery on 09/11/2017, he had no operative complications. On postop day 1, he was started on a diet. He received dietary instruction and his pain was well managed. On postop day 2, his vital signs were stable. He began ostomy care education. He was started on a regular diet and Glucerna was added along with Megace to increase his appetite. With adding Megace, it will make him slightly hypercoagulable, so Lovenox was added in addition to SCDs. Potassium was low and he was supplemented with K- Phos. Blood sugars were continued to be monitored. On postop day 3, his ostomy started to function fairly well over the past 24 hours. He was supplemented with albumin KCl and continuation of the magnesium. On postop day 4, he was able to be discharged to home. PHYSICAL EXAMINATION: GENERAL: Hever Torres is a 62-year-old male. VITAL SIGNS: Height 5 feet 10 inches. Weight is 170 pounds. TPR is 98.4, 77, 16, blood pressure 113/63. HEENT: Negative. NECK: Supple. HEART: Regular rate and rhythm. LUNGS: Clear. ABDOMEN: Colostomy bag intact. [place] look good. EXTREMITIES: Without peripheral edema. DISPOSITION: Discharged to home. CONDITION: Stable and improving. FOLLOWUP APPOINTMENT: With Susie Reynolds PA-C, on 09/22/2017 at 10:00 a.m. HOME MEDICATIONS: Percocet 5/325 mg 1 to 2 every 4 hours p.r.n. pain, #40. He is to resume his home medications of metformin 1000 mg p.o. b.i.d., aspirin 81 mg p.o. daily, Advil 200 mg p.o. every 6 hours p.r.n., Amaryl 1 mg p.o. every a.m., potassium chloride 20 mEq p.o. b.i.d., multivitamin 1 tablet daily, Zocor 40 mg p.o. daily, probenecid 500 mg p.o. daily, Megace 800 mg p.o. daily, he gets 40 mg/5 mL. DISCHARGE DIET: Diabetic diet with Glucerna or Ensure Protein supplements four times a day. Drink 8 to 10 glasses of water a day. ACTIVITY: Lifting, no lifting greater than 10 pounds for 6 weeks. Walk around inside your house 6 times a day. May shower. Keep operative site clean and dry. Colostomy care per instructions. Notify provider if any fever, nausea, vomiting, or increased pain. Special instruction; use incentive spirometer 10 times every hour while awake for 1 week.
== END 2017-09-15 09:30 | disposition home or self-care (01) | DRG 331 ==
LOC: JP.SDSSCHI 07:14 → JP.SDS 07:14 → EDSTATUS 07:15 → JP.2SS 13:14
PROVIDERS: ADMIT Surgery; ATTEND Surgery
PROC: 0D1N4Z4 Bypass Sigmoid Colon to Cutaneous, Percutaneous Endoscopic Approach (ICD-10-PCS; principal; 2017-09-11)
PROC: 0FB24ZX Excision of Left Lobe Liver, Percutaneous Endoscopic Approach, Diagnostic (ICD-10-PCS; 2017-09-11)
PROC: 3E0T3BZ Introduction of Anesthetic Agent into Peripheral Nerves and Plexi, Percutaneous Approach (ICD-10-PCS; 2017-09-11)
PROC: 0JH63WZ Insertion of Totally Implantable Vascular Access Device into Chest Subcutaneous Tissue and Fascia, Percutaneous Approach (ICD-10-PCS; 2017-09-11)
PROC: 05H633Z Insertion of Infusion Device into Left Subclavian Vein, Percutaneous Approach (ICD-10-PCS; 2017-09-11)
DX: C20 Malignant neoplasm of rectum (principal); K62.4 Stenosis of anus and rectum; K76.89 Other specified diseases of liver; E11.9 Type 2 diabetes mellitus without complications; E78.5 Hyperlipidemia, unspecified; M10.9 Gout, unspecified; Z79.84 Long term (current) use of oral hypoglycemic drugs; Z79.82 Long term (current) use of aspirin
CPT/HCPCS: 36415; 80048; 80053; 82378; 82962; 83735; 83880; 84100; 85027; 88112; 88305; 88307; 88312; 88313; 88342; 94762; A9270-GY; C1788; C9113; J0171; J0330; J0694; J1100; J1170; J1642; J1650; J2001; J2185; J2405; J2704; J2710; J2795; J3010; J3475; J3480; J3490; J7030; J7040; J7042; J7050; J7120; P9047

== ENCOUNTER 2017-10-27 11:35 | Inpatient (IN) | payer MEDICAID ==
[2017-10-27] MEDS ORDERED: Sodium Chloride 0.9% 1,000 ML IV SCH ×4 (12:00→15:51)
[2017-10-27] MEDS ORDERED: HYDROmorphone 0.5 MG/0.5 ML Syringe IVPUSH ONE (12:04)
--- NOTE | 2017-10-27 12:07 | EDM.PDOC ---
ED HPI GENERAL MEDICAL PROBLEM - General Chief Complaint: General Stated Complaint: ILLNESS VIA [facility] Time Seen by Provider: 10/27/17 12:07 Source of Information: Reports: Patient History Limitations: Reports: No Limitations - History of Present Illness INITIAL COMMENTS - FREE TEXT/NARRATIVE: pt arrived after spiking a temp last nite. He was walking and he had an episode of weakness. Onset: Other ( started last nite.) Duration: Hour(s):, Getting Worse, Other (Pt has a history of rectal ca. ) Location: Reports: Abdomen Associated Symptoms: Reports: Confusion, Fever/Chills, Malaise, Weakness - Related Data Allergies Allergy/AdvReac Type Severity Reaction Status Date / Time No Known Allergies Allergy Verified 09/05/17 09:35 Home Meds: Home Meds Aspirin [Adult Low Dose Aspirin EC] 81 mg PO DAILY 07/29/17 [History] Multivitamin with Minerals [Multiple Vitamin] 1 tab PO DAILY 07/29/17 [History] Probenecid 500 mg PO DAILY 07/29/17 [History] Simvastatin [Zocor] 40 mg PO DAILY 07/29/17 [History] metFORMIN [Glucophage] 1,000 mg PO BIDMEALS 07/29/17 [History] Glimepiride [Amaryl] 1 mg PO QAM 08/27/17 [History] Ibuprofen [Advil] 200 mg PO Q6HR PRN 08/27/17 [History] Potassium Chloride [K-Tab ER] 20 meq PO BID 08/27/17 [History] Acetaminophen/oxyCODONE [Percocet 325-5 MG] 1 - 2 tab PO Q4H PRN #40 tablet [Rx] Megestrol [Megace 40 MG/ML Susp] 800 mg PO DAILY ml 09/15/17 [Rx] Capecitabine [Xeloda] 1,500 mg PO ASDIRECTED 10/27/17 [History] Magnesium Oxide [Magnesium] 500 mg PO 10/27/17 [History] Prochlorperazine [Compazine] 10 mg PO ASDIRECTED 10/27/17 [History] Past Medical History HEENT History: Reports: Cataract Cardiovascular History: Reports: High Cholesterol Gastrointestinal History: Reports: Chronic Diarrhea, Other (See Below) Other Gastrointestinal History: rectal mass - adenocarcinoma Musculoskeletal History: Reports: Arthritis, Gout Endocrine/Metabolic History: Reports: Diabetes, Type II Hematologic History: Reports: Other (See Below) Other Hematologic History: K+ deficiency Oncologic (Cancer) History: Reports: Other (See Below) Other Oncologic History: rectal CA - Infectious Disease History Infectious Disease History: Reports: Measles - Past Surgical History Head Surgeries/Procedures: Reports: None HEENT Surgical History: Reports: Cataract Surgery GI Surgical History: Reports: Colonoscopy Endocrine Surgical History: Reports: None Musculoskeletal Surgical History: Reports: Arthroscopic Knee Dermatological Surgical History: Reports: None Social & Family History - Family History Family Medical History: Noncontributory - Tobacco Use Smoking Status *Q: Never Smoker Second Hand Smoke Exposure: No - Caffeine Use Caffeine Use: Reports: Soda - Recreational Drug Use Recreational Drug Use: No ED ROS GENERAL - Review of Systems Review Of Systems: See Below Constitutional: Reports: No Symptoms, Fatigue, Decreased Appetite HEENT: Reports: No Symptoms Respiratory: Reports: No Symptoms Cardiovascular: Reports: No Symptoms Endocrine: Reports: No Symptoms GI/Abdominal: Reports: Other (lower abdomanal pain) : Reports: Frequency, Incontinence Musculoskeletal: Reports: No Symptoms Skin: Reports: No Symptoms ED EXAM, GENERAL - Physical Exam Exam: See Below Free Text/Narrative:: pt arrived with pain in lower abdoman. He is feeling very weak and has a fever. Exam Limited By: No Limitations General Appearance: Alert, Anxious, Moderate Distress, Other (pupils are equal and reactive. ) Ears: Normal TMs Nose: Normal Inspection Throat/Mouth: Normal Inspection Head: Atraumatic Neck: Normal Inspection Respiratory/Chest: No Respiratory Distress Cardiovascular: Regular Rate, Rhythm, Tachycardia, Other (Pt had a sinus tach at 130) GI/Abdominal: Soft, Other ( tender in the supra pupic area. ) (Male) Exam: Deferred Rectal (Males) Exam: Other (pt has a colostomy) Back Exam: Normal Inspection Extremities: Normal Inspection Neurological: Alert, Oriented, Normal Cognition Psychiatric: Normal Affect Course - Vital Signs Last Recorded V/S: Last Vital Signs Temp 38.4 C H 10/27/17 11:48 Pulse 132 H 10/27/17 11:48 Resp 18 10/27/17 11:48 BP 131/69 10/27/17 11:48 Pulse Ox 93 L 10/27/17 11:48 - Orders/Labs/Meds Orders: Active Orders 24 hr Category Date Time Status EKG Documentation Completion [RC] ASDIRECTED Care 10/27/17 11:58 Active Abdomen Pelvis w Cont [CT] Stat Exams 10/27/17 13:43 Taken CULTURE BLOOD [BC] Urgent Lab 10/27/17 11:55 Received CULTURE BLOOD [BC] Urgent Lab 10/27/17 12:10 Received CULTURE URINE [RM] Stat Lab 10/27/17 13:24 Received Iopamidol [Isovue-300 (61%)] Med 10/27/17 14:00 Active 116 ml IV . DIRECTED Piperacillin/Tazobactam [Zosyn] 3.375 gm Med 10/27/17 13:00 Active Sodium Chloride 0.9% [Normal Saline] 50 ml IV Q6H Sodium Chloride 0.9% [Normal Saline] 1,000 ml Med 10/27/17 12:00 Active IV ASDIRECTED Sodium Chloride 0.9% [Normal Saline] 1,000 ml Med 10/27/17 12:45 Active IV ASDIRECTED Sodium Chloride 0.9% [Normal Saline] 1,000 ml Med 10/27/17 14:00 Active IV ASDIRECTED Sodium Chloride 0.9% [Saline Flush] Med 10/27/17 13:50 Active 10 ml FLUSH ONETIME PRN Blood Culture x2 Reflex Set [OM.PC] Urgent Oth 10/27/17 11:55 Ordered EKG 12 Lead [EK] Routine Ther 10/27/17 11:58 Ordered Medication Orders Sodium Chloride (Normal Saline) 1,000 mls @ 999 mls/hr IV ASDIRECTED [facility] Last Admin: 10/27/17 11:55 Dose: 999 mls/hr Sodium Chloride (Normal Saline) 1,000 mls @ 999 mls/hr IV ASDIRECTED OSMAN Last Admin: 10/27/17 12:55 Dose: 999 mls/hr Piperacillin Sod/Tazobactam (Sod 3.375 gm/ Sodium Chloride) 50 mls @ 100 mls/ hr IV Q6H [facility] Last Admin: 10/27/17 13:15 Dose: 100 mls/hr Sodium Chloride (Normal Saline) 1,000 mls @ 300 mls/hr IV ASDIRECTED [facility] Iopamidol (Isovue-300 (61%)) 116 ml IV . DIRECTED [facility] Sodium Chloride (Saline Flush) 10 ml FLUSH ONETIME PRN PRN Reason: PER RADIOLOGY PROTOCOL Labs: Laboratory Tests 10/27/17 10/27/17 10/27/17 Range/Units 11:57 11:57 11:57 WBC 14.0 H (4.5-11.0) K/uL RBC 3.10 L (4.30-5.90) M/uL Hgb 9.2 L (12.0-15.0) g/dL Hct 27.5 L (40.0-54.0) % MCV 89 (80-98) fL MCH 30 (27-31) pg MCHC 34 (32-36) % Plt Count 173 (150-400) K/uL Neut % (Auto) 87 H (36-66) % Lymph % (Auto) 3 L (24-44) % Bertie % (Auto) 11 H (2-6) % Eos % (Auto) 0 L (2-4) % Baso % (Auto) 0 (0-1) % Sodium 132 L (140-148) mmol/L Potassium 3.4 L (3.6-5.2) mmol/L Chloride 98 L (100-108) mmol/L Carbon Dioxide 22 (21-32) mmol/L Anion Gap 15.4 H (5.0-14.0) mmol/L BUN 31 H D (7-18) mg/dL Creatinine 1.1 D (0.8-1.3) mg/dL Est Cr Clr Drug Dosing 77.89 mL/min Estimated GFR (MDRD) > 60 (>60) Glucose 270 H (74-106) mg/dL Lactic Acid 3.7 H (0.4-2.0) mmol/L Calcium 9.8 D (8.5-10.1) mg/dL Total Bilirubin 0.6 D (0.2-1.0) mg/dL AST 30 (15-37) U/L ALT 19 (12-78) U/L Alkaline Phosphatase 114 (46-116) U/L Total Protein 7.0 (6.4-8.2) g/dL Albumin 1.9 L (3.4-5.0) g/dL Globulin 5.1 H (2.3-3.5) g/dL Albumin/Globulin Ratio 0.4 L (1.2-2.2) Urine Color Urine Appearance Urine pH (4.5-8.0) Ur Specific [place] (1.008-1.030) Urine Protein (NEGATIVE) mg/dL Urine Glucose (UA) (NEGATIVE) mg/dL Urine Ketones (NEGATIVE) mg/dL Urine Occult Blood (NEGATIVE) Urine Nitrite (NEGAITVE) Urine Bilirubin (NEGATIVE) Urine Urobilinogen (NORMAL) mg/dL Ur Leukocyte Esterase (NEGATIVE) Urine RBC (0-5) Urine WBC (0-5) Ur Epithelial Cells Amorphous Sediment Urine Bacteria Urine Mucus 10/27/17 Range/Units 13:07 WBC (4.5-11.0) K/uL RBC (4.30-5.90) M/uL Hgb (12.0-15.0) g/dL Hct (40.0-54.0) % MCV (80-98) fL MCH (27-31) pg MCHC (32-36) % Plt Count (150-400) K/uL Neut % (Auto) (36-66) % Lymph % (Auto) (24-44) % Bertie % (Auto) (2-6) % Eos % (Auto) (2-4) % Baso % (Auto) (0-1) % Sodium (140-148) mmol/L Potassium (3.6-5.2) mmol/L Chloride (100-108) mmol/L Carbon Dioxide (21-32) mmol/L Anion Gap (5.0-14.0) mmol/L BUN (7-18) mg/dL Creatinine (0.8-1.3) mg/dL Est Cr Clr Drug Dosing mL/min Estimated GFR (MDRD) (>60) Glucose (74-106) mg/dL Lactic Acid (0.4-2.0) mmol/L Calcium (8.5-10.1) mg/dL Total Bilirubin (0.2-1.0) mg/dL AST (15-37) U/L ALT (12-78) U/L Alkaline Phosphatase (46-116) U/L Total Protein (6.4-8.2) g/dL Albumin (3.4-5.0) g/dL Globulin (2.3-3.5) g/dL Albumin/Globulin Ratio (1.2-2.2) Urine Color Yellow Urine Appearance Turbid Urine pH 5.0 (4.5-8.0) Ur Specific [place] 1.015 (1.008-1.030) Urine Protein 100 H (NEGATIVE) mg/dL Urine Glucose (UA) Normal (NEGATIVE) mg/dL Urine Ketones Negative (NEGATIVE) mg/dL Urine Occult Blood Large (NEGATIVE) Urine Nitrite Positive H (NEGAITVE) Urine Bilirubin Small (NEGATIVE) Urine Urobilinogen Normal (NORMAL) mg/dL Ur Leukocyte Esterase Large (NEGATIVE) Urine RBC 0-5 (0-5) Urine WBC Packed H (0-5) Ur Epithelial Cells Rare Amorphous Sediment Not seen Urine Bacteria Many Urine Mucus Rare Meds: Medications Generic Name Dose Route Start Last Admin Trade Name Freq PRN Reason Stop Dose Admin Sodium Chloride 1,000 mls @ 999 mls/hr 10/27/17 12:00 10/27/17 11:55 Normal Saline IV 999 mls/hr ASDIRECTED OSMAN Administration Sodium Chloride 1,000 mls @ 999 mls/hr 10/27/17 12:45 10/27/17 12:55 Normal Saline IV 999 mls/hr ASDIRECTED OSMAN Administration Piperacillin Sod/Tazobactam 50 mls @ 100 mls/hr 10/27/17 13:00 10/27/17 13:15 Sod 3.375 gm/ Sodium Chloride IV 100 mls/hr Q6H OSMAN Administration Sodium Chloride 1,000 mls @ 300 mls/hr 10/27/17 14:00 Normal Saline IV ASDIRECTED OSMAN Iopamidol 116 ml 10/27/17 14:00 Isovue-300 (61%) IV . DIRECTED OSMAN Sodium Chloride 10 ml 10/27/17 13:50 Saline Flush FLUSH ONETIME PRN PER RADIOLOGY PROTOCOL Discontinued Medications Generic Name Dose Route Start Last Admin Trade Name Freq PRN Reason Stop Dose Admin Acetaminophen 650 mg 10/27/17 12:59 10/27/17 13:15 Tylenol PO 10/27/17 13:00 650 mg NOW ONE Administration Hydromorphone HCl 0.5 mg 10/27/17 12:04 10/27/17 12:56 Dilaudid IVPUSH 10/27/17 12:05 0.5 mg ONETIME ONE Administration Sodium Chloride 75 mls @ 3 mls/sec 10/27/17 13:50 Normal Saline IV 10/27/17 13:51 ONETIME ONE - Re-Assessments/Exams Free Text/Narrative Re-Assessment/Exam: 10/27/17 14:00 urine looks very infected. His wbc is mildly elevated. Pt has an elevated lactic acid 10/27/17 14:24 Departure - Departure Time of Disposition: 14:24 Disposition: Admitted As Inpatient 68 Condition: Fair Clinical Impression: Sepsis, UTI (urinary tract infection), Rectal adenocarcinoma - Discharge Information Referrals: PCP,None [Ordering Only Provider] - Forms: ED Department Discharge Care Plan Goals: admit to Dr varela. - My Orders Last 24 Hours: My Active Orders 10/27/17 11:55 CULTURE BLOOD [BC] Urgent Blood Culture x2 Reflex Set [OM.PC] Urgent 10/27/17 11:58 EKG Documentation Completion [RC] ASDIRECTED EKG 12 Lead [EK] Routine 10/27/17 12:00 Sodium Chloride 0.9% [Normal Saline] 1,000 ml IV ASDIRECTED 10/27/17 12:10 CULTURE BLOOD [BC] Urgent 10/27/17 12:45 Sodium Chloride 0.9% [Normal Saline] 1,000 ml IV ASDIRECTED 10/27/17 13:00 Piperacillin/Tazobactam [Zosyn] 3.375 gm Sodium Chloride 0.9% [Normal Saline] 50 ml IV Q6H 10/27/17 13:24 CULTURE URINE [RM] Stat 10/27/17 13:43 Abdomen Pelvis w Cont [CT] Stat 10/27/17 13:50 Sodium Chloride 0.9% [Saline Flush] 10 ml FLUSH ONETIME PRN 10/27/17 14:00 Iopamidol [Isovue-300 (61%)] 116 ml IV . DIRECTED Sodium Chloride 0.9% [Normal Saline] 1,000 ml IV ASDIRECTED - Assessment/Plan Last 24 Hours: My Active Orders 10/27/17 11:55 CULTURE BLOOD [BC] Urgent Blood Culture x2 Reflex Set [OM.PC] Urgent 10/27/17 11:58 EKG Documentation Completion [RC] ASDIRECTED EKG 12 Lead [EK] Routine 10/27/17 12:00 Sodium Chloride 0.9% [Normal Saline] 1,000 ml IV ASDIRECTED 10/27/17 12:10 CULTURE BLOOD [BC] Urgent 10/27/17 12:45 Sodium Chloride 0.9% [Normal Saline] 1,000 ml IV ASDIRECTED 10/27/17 13:00 Piperacillin/Tazobactam [Zosyn] 3.375 gm Sodium Chloride 0.9% [Normal Saline] 50 ml IV Q6H 10/27/17 13:24 CULTURE URINE [RM] Stat 10/27/17 13:43 Abdomen Pelvis w Cont [CT] Stat 10/27/17 13:50 Sodium Chloride 0.9% [Saline Flush] 10 ml FLUSH ONETIME PRN 10/27/17 14:00 Iopamidol [Isovue-300 (61%)] 116 ml IV . DIRECTED Sodium Chloride 0.9% [Normal Saline] 1,000 ml IV ASDIRECTED
--- NOTE | 2017-10-27 12:38 | CR ---
Chest 1V Frontal INDICATION: sob COMPARISON: None FINDINGS: AP portable chest. Left subclavian central line in place with tip in the mid to lower SVC. No pneumothorax. No infiltrat es or pleural effusions. No signs of pulmonary edema. Heart size normal. IMPRESSION: Central line in good position mid to lower SVC. Nothing acute in the chest.
[2017-10-27] MEDS ORDERED: Acetaminophen 325 MG Tab PO ONE (12:59)
[2017-10-27] MEDS ORDERED: Piperacillin/Tazobactam 3.375 GM in Sodium Chloride 0.9% 50 ML IV SCH ×2 (13:00→18:30)
[2017-10-27] MEDS ORDERED: Sodium Chloride 0.9% 75 ML IV ONE (13:50)
[2017-10-27] MEDS ORDERED: Sodium Chloride 0.9% 10 ML Syringe FLUSH PRN (13:50)
[2017-10-27] MEDS ORDERED: Iopamidol 612 MG/ML 150 ML Bottle IV SCH (14:00)
--- NOTE | 2017-10-27 14:51 | CT ---
Abdomen Pelvis w Cont INDICATION: possible fistula TECHNIQUE: CT images of the abdomen and pelvis performed. Coronal reformatted images obtained. Exam performed with IV contrast only. Delayed images obtained at 10 minutes and 20 minutes DLP: 312 mGycm COMPARISON: CT 08/29/2017 FINDINGS: Again seen is large mass in the pelvis measuring 12 x 10 cm. This mass appears to have i ncreased slightly in size. There is displacement of the urinary bladder anteriorly by the mass but no definite colovesical fistula is seen. There is a small amount of irregular linear contrast near the distal right ureter and a small distal right ureteral fistula is not excluded. Both ureters aren't di lated and there is moderate bilateral hydronephrosis. Punctate calcification in the lower pole the left kidney. Spleen enlarged measuring 16 cm in length. Focal 2.2 cm mass in the inferior portion of left lobe of the liver. This is new since the prior stud y. No other liver lesions seen. Adrenal glands negative. Pancreas unremarkable. No evidence of bowel obstruction. Left colostomy is new since the prior study. Remaining rectosigmoid colon has a small am ount of fluid but no significant dilatation. IMPRESSION: 1. Large pelvic mass causing moderate hydronephrosis and hydroureter bilaterally. No colovesical fist sherry, though tiny distal right ureteral fistula possible. The above discussion. 2. New small lesion left lobe of the liver. Metastatic disease is a consideration. 3. Splenomegaly
--- NOTE | 2017-10-27 15:35 | PCM.HP ---
H&P History of Present Illness - General Date of Service: 10/27/17 Admit Problem/Dx: Admission Diagnosis/Problem Admission Diagnosis/Problem Acute cystitis Source of Information: Patient, Family, Provider History Limitations: Reports: Altered Mental Status (moderate confusion) - History of Present Illness Initial Comments - Free Text/Narative: Gorge presents to the emergency room today with weakness and confusion. Some of the history is gathered from his because of the confusion over the weekend. They report that he had a good day Friday, 3 days before presentation. Friday night he developed some very mild confusion which seemed better Friday morning but then waxed and waned throughout the course of the day on Friday. He did report some urinary urgency this weekend but no dysuria. He reports a few episodes of shaking chills but did not think he had any fevers or sweats. His appetite has been off this weekend. He has continued to drink normal amounts of water. No change in colostomy function or the appearance of the stool. No complaints of shortness of breath. He does note some mild lower abdominal pain but this has been present since surgery which was 6 weeks ago. He recently completed his first round of both IV and oral chemotherapy and was supposed to start his second round of chemotherapy today. Workup in the emergency room was concerning for sepsis with urinary tract being the probable source. He had fever, tachycardia and confusion as well as an elevated lactic acid level. He has received IV fluids as well as antibiotics and cultures have been obtained. He will be admitted for further management. - Related Data Allergies/Adverse Reactions: Allergies Allergy/AdvReac Type Severity Reaction Status Date / Time No Known Allergies Allergy Verified 09/05/17 09:35 Home Medications: Home Meds Aspirin [Adult Low Dose Aspirin EC] 81 mg PO DAILY 07/29/17 [History] Multivitamin with Minerals [Multiple Vitamin] 1 tab PO DAILY 07/29/17 [History] Probenecid 500 mg PO DAILY 07/29/17 [History] Simvastatin [Zocor] 40 mg PO DAILY 07/29/17 [History] metFORMIN [Glucophage] 1,000 mg PO BIDMEALS 07/29/17 [History] Glimepiride [Amaryl] 1 mg PO QAM 08/27/17 [History] Ibuprofen [Advil] 200 mg PO Q6HR PRN 08/27/17 [History] Potassium Chloride [K-Tab ER] 20 meq PO BID 08/27/17 [History] Acetaminophen/oxyCODONE [Percocet 325-5 MG] 1 - 2 tab PO Q4H PRN #40 tablet [Rx] Megestrol [Megace 40 MG/ML Susp] 800 mg PO DAILY ml 09/15/17 [Rx] Capecitabine [Xeloda] 1,500 mg PO ASDIRECTED 10/27/17 [History] Insulin Degludec [Tresiba Flextouch U-100] 14 unit SQ DAILY 10/27/17 [History] Magnesium Oxide [Magnesium] 500 mg PO 10/27/17 [History] Prochlorperazine [Compazine] 10 mg PO ASDIRECTED 10/27/17 [History] Past Medical History HEENT History: Reports: Cataract Cardiovascular History: Reports: High Cholesterol Gastrointestinal History: Reports: Chronic Diarrhea, Other (See Below) Other Gastrointestinal History: rectal mass - adenocarcinoma Musculoskeletal History: Reports: Arthritis, Gout Endocrine/Metabolic History: Reports: Diabetes, Type II Hematologic History: Reports: Other (See Below) Other Hematologic History: K+ deficiency Oncologic (Cancer) History: Reports: Other (See Below) Other Oncologic History: rectal CA - Infectious Disease History Infectious Disease History: Reports: Measles - Past Surgical History Head Surgeries/Procedures: Reports: None HEENT Surgical History: Reports: Cataract Surgery GI Surgical History: Reports: Colonoscopy Endocrine Surgical History: Reports: None Musculoskeletal Surgical History: Reports: Arthroscopic Knee Dermatological Surgical History: Reports: None Social & Family History - Family History Family Medical History: Noncontributory - Tobacco Use Smoking Status *Q: Never Smoker Second Hand Smoke Exposure: No - Caffeine Use Caffeine Use: Reports: Soda - Alcohol Use Alcohol Use History: No - Recreational Drug Use Recreational Drug Use: No H&P Review of Systems - Review of Systems: Review Of Systems: See Below Free Text/Narrative: A complete 12 point review of systems was obtained. Pertinent positives and negatives are noted in the history of present illness. All other systems were reviewed and were negative except as noted. Exam - Exam Exam: See Below - Vital Signs Vital Signs: Last Vital Signs Temp 38.4 C H 10/27/17 11:48 Pulse 132 H 10/27/17 11:48 Resp 18 10/27/17 11:48 BP 131/69 10/27/17 11:48 Pulse Ox 93 L 10/27/17 11:48 Weight: 77.111 kg - Exam Quality Assessment: No: Supplemental Oxygen General: Alert, Cooperative. No: Oriented, Mild Distress HEENT: Conjunctiva Clear, Mucosa Moist & [place]. No: Scleral Icterus Neck: Supple, Trachea Midline. No: Lymphadenopathy Lungs: Clear to Auscultation, Normal Respiratory Effort Cardiovascular: Regular Rhythm, Tachycardia GI/Abdominal Exam: Normal Bowel Sounds, Soft, No Distention, Other (ostomy LLQ) Back Exam: Normal Inspection, Full Range of Motion Extremities: No Pedal Edema. No: Increased Warmth Peripheral Pulses: 2+: Dorsalis Pedis (L), Dorsalis Pedis (R) Skin: Warm, Dry Neuro Extensive - Mental Status: Alert, Nl Response to Commands. No: Oriented x3 Neuro Extensive - Motor, Sensory, Reflexes: No: Dysarthria, Abnormal Motor, Tremor Psychiatric: Alert, Normal Affect - Patient Data Lab Results Last 24 hrs: Laboratory Results - last 24 hr 10/27/17 10/27/17 10/27/17 Range/Units 11:57 11:57 11:57 WBC 14.0 H (4.5-11.0) K/uL RBC 3.10 L (4.30-5.90) M/uL Hgb 9.2 L (12.0-15.0) g/dL Hct 27.5 L (40.0-54.0) % MCV 89 (80-98) fL MCH 30 (27-31) pg MCHC 34 (32-36) % Plt Count 173 (150-400) K/uL Neut % (Auto) 87 H (36-66) % Lymph % (Auto) 3 L (24-44) % Butts % (Auto) 11 H (2-6) % Eos % (Auto) 0 L (2-4) % Baso % (Auto) 0 (0-1) % Sodium 132 L (140-148) mmol/L Potassium 3.4 L (3.6-5.2) mmol/L Chloride 98 L (100-108) mmol/L Carbon Dioxide 22 (21-32) mmol/L Anion Gap 15.4 H (5.0-14.0) mmol/L BUN 31 H D (7-18) mg/dL Creatinine 1.1 D (0.8-1.3) mg/dL Est Cr Clr Drug Dosing 77.89 mL/min Estimated GFR (MDRD) > 60 (>60) Glucose 270 H (74-106) mg/dL Lactic Acid 3.7 H (0.4-2.0) mmol/L Calcium 9.8 D (8.5-10.1) mg/dL Total Bilirubin 0.6 D (0.2-1.0) mg/dL AST 30 (15-37) U/L ALT 19 (12-78) U/L Alkaline Phosphatase 114 (46-116) U/L Total Protein 7.0 (6.4-8.2) g/dL Albumin 1.9 L (3.4-5.0) g/dL Globulin 5.1 H (2.3-3.5) g/dL Albumin/Globulin Ratio 0.4 L (1.2-2.2) Urine Color Urine Appearance Urine pH (4.5-8.0) Ur Specific [place] (1.008-1.030) Urine Protein (NEGATIVE) mg/dL Urine Glucose (UA) (NEGATIVE) mg/dL Urine Ketones (NEGATIVE) mg/dL Urine Occult Blood (NEGATIVE) Urine Nitrite (NEGAITVE) Urine Bilirubin (NEGATIVE) Urine Urobilinogen (NORMAL) mg/dL Ur Leukocyte Esterase (NEGATIVE) Urine RBC (0-5) Urine WBC (0-5) Ur Epithelial Cells Amorphous Sediment Urine Bacteria Urine Mucus 10/27/17 Range/Units 13:07 WBC (4.5-11.0) K/uL RBC (4.30-5.90) M/uL Hgb (12.0-15.0) g/dL Hct (40.0-54.0) % MCV (80-98) fL MCH (27-31) pg MCHC (32-36) % Plt Count (150-400) K/uL Neut % (Auto) (36-66) % Lymph % (Auto) (24-44) % Butts % (Auto) (2-6) % Eos % (Auto) (2-4) % Baso % (Auto) (0-1) % Sodium (140-148) mmol/L Potassium (3.6-5.2) mmol/L Chloride (100-108) mmol/L Carbon Dioxide (21-32) mmol/L Anion Gap (5.0-14.0) mmol/L BUN (7-18) mg/dL Creatinine (0.8-1.3) mg/dL Est Cr Clr Drug Dosing mL/min Estimated GFR (MDRD) (>60) Glucose (74-106) mg/dL Lactic Acid (0.4-2.0) mmol/L Calcium (8.5-10.1) mg/dL Total Bilirubin (0.2-1.0) mg/dL AST (15-37) U/L ALT (12-78) U/L Alkaline Phosphatase (46-116) U/L Total Protein (6.4-8.2) g/dL Albumin (3.4-5.0) g/dL Globulin (2.3-3.5) g/dL Albumin/Globulin Ratio (1.2-2.2) Urine Color Yellow Urine Appearance Turbid Urine pH 5.0 (4.5-8.0) Ur Specific [place] 1.015 (1.008-1.030) Urine Protein 100 H (NEGATIVE) mg/dL Urine Glucose (UA) Normal (NEGATIVE) mg/dL Urine Ketones Negative (NEGATIVE) mg/dL Urine Occult Blood Large (NEGATIVE) Urine Nitrite Positive H (NEGAITVE) Urine Bilirubin Small (NEGATIVE) Urine Urobilinogen Normal (NORMAL) mg/dL Ur Leukocyte Esterase Large (NEGATIVE) Urine RBC 0-5 (0-5) Urine WBC Packed H (0-5) Ur Epithelial Cells Rare Amorphous Sediment Not seen Urine Bacteria Many Urine Mucus Rare Result Diagrams: 10/27/17 11:57 10/27/17 11:57 Imaging Impressions Last 24 hrs: CXR - images personally reviewed - lungs are clear with no mass, infiltrate, or effusion. Heart size is normal. Port in place with tip in mid-svc CT abd/pelvis - large pelvic mass seen on CT 6 weeks ago. There is moderate bilateral hydroureter and hydronephrosis. No definite colovesical fistula is seen. New liver lesion noted, concern for metastatic disease. EKG INTERPRETATION EKG Date: 10/27/17 Rhythm: Other (sinus tachycardia) Rate (Beats/Min): 118 [place]: Normal P-Wave: Present QRS: Normal ST-T: Normal QT: Normal *Q Meaningful Use (ADM) - VTE *Q VTE Criteria *Q: - VTE Risk Assess *Q Each Risk Factor Represents 1 Point: None Total Score 1 Point Risk Factors: 0 Each Risk Factor Represents 2 Points: Age 60 - 74 Years, Central venous access, Malignancy (present or previous) Total Score 2 Point Risk Factors: 6 Each Risk Factor Represents 3 Points: None Total Score 3 Point Risk Factors: 0 Each Risk Factor Represents 5 Points: None Total Score 5 Point Risk Factors: 0 Venous Thromboembolism Risk Factor Score *Q: 6 - Stroke *Q Stroke Criteria *Q: - AMI *Q AMI Criteria *Q: - Problem List (1) Acute cystitis SNOMED Code(s): 02170206 ICD Code: N30.00 - ACUTE CYSTITIS WITHOUT HEMATURIA Status: Acute Current Visit: Yes Qualifiers: Hematuria presence: without hematuria Qualified Code(s): N30.00 - Acute cystitis without hematuria (2) Sepsis SNOMED Code(s): 07492408 ICD Code: A41.9 - SEPSIS, UNSPECIFIED ORGANISM Status: Acute Current Visit: Yes Qualifiers: Sepsis type: sepsis due to unspecified organism Qualified Code(s): A41.9 - Sepsis, unspecified organism (3) Rectal adenocarcinoma SNOMED Code(s): 034620206 ICD Code: C20 - MALIGNANT NEOPLASM OF RECTUM Status: Acute Current Visit : Yes (4) Type 2 diabetes mellitus SNOMED Code(s): 54940511 ICD Code: E11.9 - TYPE 2 DIABETES MELLITUS WITHOUT COMPLICATIONS Status: Acute Current Visit: No Qualifiers: Diabetes mellitus complication status: with unspecified complications Diabetes mellitus custodial insulin use: with long term care phlebotomist use Qualified Code(s) : E11.8 - Type 2 diabetes mellitus with unspecified complications; Z79.4 - snf (current) use of insulin; Z79.4 - snf (current) use of insulin; Z79.4 - terminal superintendent (current) use of insulin; Z79.4 - snf (current) use of insulin Problem List Initiated/Reviewed/Updated: Yes Orders Last 24hrs: Active Orders 24 hr Category Date Time Status Patient Status Manage Transfer [TRANSFER] Routine ADT 10/27/17 15:11 Active EKG Documentation Completion [RC] ASDIRECTED Care 10/27/17 11:58 Active CULTURE BLOOD [BC] Urgent Lab 10/27/17 11:55 Received CULTURE BLOOD [BC] Urgent Lab 10/27/17 12:10 Received CULTURE URINE [RM] Stat Lab 10/27/17 13:24 Received Iopamidol [Isovue-300 (61%)] Med 10/27/17 14:00 Active 116 ml IV . DIRECTED Piperacillin/Tazobactam [Zosyn] 3.375 gm Med 10/27/17 13:00 Active Sodium Chloride 0.9% [Normal Saline] 50 ml IV Q6H Sodium Chloride 0.9% [Normal Saline] 1,000 ml Med 10/27/17 12:00 Active IV ASDIRECTED Sodium Chloride 0.9% [Normal Saline] 1,000 ml Med 10/27/17 12:45 Active IV ASDIRECTED Sodium Chloride 0.9% [Normal Saline] 1,000 ml Med 10/27/17 14:00 Active IV ASDIRECTED Sodium Chloride 0.9% [Saline Flush] Med 10/27/17 13:50 Active 10 ml FLUSH ONETIME PRN Blood Culture x2 Reflex Set [OM.PC] Urgent Oth 10/27/17 11:55 Ordered Resuscitation Status Routine Resus Stat 10/27/17 15:14 Ordered EKG 12 Lead [EK] Routine Ther 10/27/17 11:58 Ordered Medication Orders Sodium Chloride (Normal Saline) 1,000 mls @ 999 mls/hr IV ASDIRECTED [facility] Last Admin: 10/27/17 11:55 Dose: 999 mls/hr Sodium Chloride (Normal Saline) 1,000 mls @ 999 mls/hr IV ASDIRECTED [facility] Last Admin: 10/27/17 12:55 Dose: 999 mls/hr Piperacillin Sod/Tazobactam (Sod 3.375 gm/ Sodium Chloride) 50 mls @ 100 mls/ hr IV Q6H [facility] Last Admin: 10/27/17 13:15 Dose: 100 mls/hr Sodium Chloride (Normal Saline) 1,000 mls @ 300 mls/hr IV ASDIRECTED [facility] Iopamidol (Isovue-300 (61%)) 116 ml IV . DIRECTED [facility] Sodium Chloride (Saline Flush) 10 ml FLUSH ONETIME PRN PRN Reason: PER RADIOLOGY PROTOCOL Assessment/Plan Comment:: ASSESSMENT AND PLAN - Acute cystitis with sepsis syndrome - occurs in the setting of recent chemotherapy and known rectal cancer with a large pelvic mass. CT scan did not show definite fistula but did show moderate hydroureter and hydronephrosis bilaterally. Lactic acid level elevated at 3.7. Clinical status improving with treatment in the emergency room. -Continue Pip/Tazo -Gentle fluids overnight -Repeat lactic acid level -Follow-up urine and blood cultures -Repeat white blood cell count in the morning -Discussed case with urology if condition worsens or does not get better Rectal cancer, obstructing - He is 6 weeks out from surgery for diverting colostomy. From a surgery standpoint seems to be doing well. Has completed 1 round of chemotherapy. -Hold chemotherapy -Outpatient follow-up Type 2 diabetes mellitus - Recently started on Trulicity and Tresiba. Also on 2 oral medications. -Plan to continue home medications other than the once weekly Trulicity -Low-dose sliding scale insulin Maintenance issues - - DVT prophylaxis - enoxaparin - GI prophylaxis - not indicated - Nutrition - diabetic diet - [place] catheter - not indicated CODE STATUS - full code Admission justification - This patient will be admitted for inpatient services and is medically appropriate meeting medical necessity for inpatient admission as outlined in my documentation. I reasonably expect the patient will require inpatient services that span a period time over 2 midnights. I reasonably expect this patient to be discharged or transferred within 96 hours after admission to the [facility]. Disposition - anticipate discharge home after the hospital stay Primary care physician - Dr Gil Hi M.D.
[2017-10-27] MEDS ORDERED: Acetaminophen/oxyCODONE 325-5 MG Tab PO PRN (15:51)
[2017-10-27] MEDS ORDERED: Ibuprofen 600 MG Tab PO PRN (15:51)
[2017-10-27] MEDS ORDERED: Ondansetron 4 MG/2 ML SDV IV PRN (15:51)
[2017-10-27] MEDS ORDERED: Polyethylene Glycol 3350 Powder 17 GM Packet PO PRN (15:51)
[2017-10-27] MEDS ORDERED: Ondansetron 4 MG Tab.DIS PO PRN (15:51)
[2017-10-27] MEDS: Insulin Aspart 100 Units/ML 3 ML Pen SUBCUT SCH ×2 (16:51→20:54)
[2017-10-27] MEDS: Piperacillin/Tazobactam/Dext 3.375 GM in Premix Bag 1 BAG IV SCH ×2 (18:15→23:29)
[2017-10-27] MEDS: Acetaminophen 325 MG Tab PO PRN (18:41)
[2017-10-27] MEDS: Simvastatin 20 MG Tab PO SCH (20:54)
[2017-10-28] MEDS: Acetaminophen 325 MG Tab PO PRN ×2 (01:17→23:36)
[2017-10-28] MEDS: Piperacillin/Tazobactam/Dext 3.375 GM in Premix Bag 1 BAG IV SCH ×4 (05:51→23:37)
[2017-10-28] MEDS ORDERED: Non-Formulary Medication 1 Each (Metformin [Glucophage] 1,000 MG) PO SCH (07:30)
[2017-10-28] MEDS: Insulin Aspart 100 Units/ML 3 ML Pen SUBCUT SCH ×4 (08:38→21:13)
[2017-10-28] MEDS: Glimepiride 2 MG Tab PO SCH (08:40)
[2017-10-28] MEDS: Enoxaparin 40 MG/0.4 ML Syringe SUBCUT SCH (08:40)
[2017-10-28] MEDS: Aspirin 81 MG Tab.EC PO SCH (08:40)
[2017-10-28] MEDS: metFORMIN 500 MG Tab PO SCH ×3 (08:41→16:21)
[2017-10-28] MEDS ORDERED: Sodium Chloride 0.9% 1,000 ML IV SCH (08:45)
--- NOTE | 2017-10-28 08:59 | PCM.PN ---
- General Info Date of Service: 10/28/17 Functional Status: Reports: Pain Controlled, Tolerating Diet - Review of Systems General: Reports: Weakness. Denies: Fever Gastrointestinal: Denies: Abdominal Pain Neurological: Reports: Confusion Systems Review Comment:: No acute events overnight and clinically he looks better today. All 4 blood cultures are now positive for a gram-negative rods with identification pending. Urine cultures also growing a gram-negative claudia with identification pending. No fevers since the time of admission. Mental status has improved and is near baseline per his 's report. No complaints of abdominal pain or flank pain. Kidney function has improved compared to yesterday. I did discuss the case with the on-call urology team at [facility]. They felt there was no acute need for ureteral stent or nephrostomy tube placement at this time but did provide guidelines for indications for transfer and stent or tube placement. - Patient Data Vitals - Most Recent: Last Vital Signs Temp 37.4 C 10/28/17 08:00 Pulse 88 10/28/17 08:00 Resp 15 10/28/17 08:00 BP 123/68 10/28/17 08:00 Pulse Ox 94 L 10/28/17 08:00 Weight - Most Recent: 77.201 kg I&O - Last 24 Hours: Intake & Output 10/27/17 10/28/17 10/28/17 22:59 06:59 14:59 Intake Total 740 2832 Output Total 901 850 Balance -161 1981 Lab Results Last 24 Hours: Laboratory Results - last 24 hr 10/27/17 10/28/17 10/28/17 Range/Units 17:40 04:40 04:40 WBC 8.9 (4.5-11.0) K/uL RBC 2.89 L (4.30-5.90) M/uL Hgb 8.6 L (12.0-15.0) g/dL Hct 25.9 L (40.0-54.0) % MCV 90 (80-98) fL MCH 30 (27-31) pg MCHC 33 (32-36) % Plt Count 134 L (150-400) K/uL Sodium 133 L (140-148) mmol/L Potassium 3.0 L (3.6-5.2) mmol/L Chloride 101 (100-108) mmol/L Carbon Dioxide 22 (21-32) mmol/L Anion Gap 13.0 (5.0-14.0) mmol/L BUN 22 H (7-18) mg/dL Creatinine 0.8 (0.8-1.3) mg/dL Est Cr Clr Drug Dosing 101.39 mL/min Estimated GFR (MDRD) > 60 (>60) Glucose 291 H (74-106) mg/dL Lactic Acid 2.3 H (0.4-2.0) mmol/L Calcium 8.9 (8.5-10.1) mg/dL Magnesium 1.3 L (1.8-2.4) mg/dL Med Orders - Current: Current Medications Acetaminophen (Tylenol) 650 mg PO Q4H PRN PRN Reason: Pain (Mild 1-3)/fever Last Admin: 10/28/17 01:17 Dose: 650 mg Aspirin (Halfprin) 81 mg PO DAILY [facility] Last Admin: 10/28/17 08:40 Dose: 81 mg Enoxaparin Sodium (Lovenox) 40 mg SUBCUT DAILY [facility] Last Admin: 10/28/17 08:40 Dose: 40 mg Glimepiride (Amaryl) 1 mg PO DAILY [facility] Last Admin: 10/28/17 08:40 Dose: 1 mg Piperacillin/Tazobactam/ (Dextrose 3.375 gm/ Premix) 50 mls @ 100 mls/hr IV Q6H [facility] Last Admin: 10/28/17 05:51 Dose: 100 mls/hr Magnesium Sulfate 2 gm/ Premix 50 mls @ 25 mls/hr IV Q6H [facility] Stop: 10/28/17 22:59 Sodium Chloride (Normal Saline) 1,000 mls @ 25 mls/hr IV ASDIRECTED [facility] Ibuprofen (Motrin) 600 mg PO Q6H PRN PRN Reason: Pain/Fever Megestrol Acetate (Megace 40 Mg/Ml Susp) 800 mg PO DAILY [facility] Metformin HCl (Glucophage) 1,000 mg PO BIDMEALS [facility] Last Admin: 10/28/17 08:41 Dose: 1,000 mg Non-Formulary Medication (Insulin Degludec [Tresiba Flextouch U-100]) 14 unit SQ DAILY [facility] Ondansetron HCl (Zofran Odt) 4 mg PO Q6H PRN PRN Reason: Nausea able to take PO Ondansetron HCl (Zofran) 4 mg IV Q6H PRN PRN Reason: Nausea/Vomiting Oxycodone/Acetaminophen (Percocet 325-5 Mg) 1 - 2 tab PO Q4H PRN PRN Reason: PAIN Polyethylene Glycol (Miralax) 17 gm PO DAILY PRN PRN Reason: Constipation Potassium Chloride (Klor-Con M20) 40 meq PO BIDAC [facility] Stop: 10/29/17 07:31 Simvastatin (Zocor) 40 mg PO BEDTIME [facility] Last Admin: 10/27/17 20:54 Dose: 40 mg Discontinued Medications Acetaminophen (Tylenol) 650 mg PO NOW ONE Stop: 10/27/17 13:00 Last Admin: 10/27/17 13:15 Dose: 650 mg Hydromorphone HCl (Dilaudid) 0.5 mg IVPUSH ONETIME ONE Stop: 10/27/17 12:05 Last Admin: 10/27/17 12:56 Dose: 0.5 mg Sodium Chloride (Normal Saline) 1,000 mls @ 999 mls/hr IV ASDIRECTED [facility] Last Admin: 10/27/17 11:55 Dose: 999 mls/hr Sodium Chloride (Normal Saline) 1,000 mls @ 999 mls/hr IV ASDIRECTED [facility] Last Admin: 10/27/17 12:55 Dose: 999 mls/hr Piperacillin Sod/Tazobactam (Sod 3.375 gm/ Sodium Chloride) 50 mls @ 100 mls/ hr IV Q6H [facility] Last Admin: 10/27/17 13:15 Dose: 100 mls/hr Sodium Chloride (Normal Saline) 75 mls @ 3 mls/sec IV ONETIME ONE Stop: 10/27/17 13:51 Last Admin: 10/28/17 08:38 Dose: Not Given Sodium Chloride (Normal Saline) 1,000 mls @ 300 mls/hr IV ASDIRECTED [facility] Sodium Chloride (Normal Saline) 1,000 mls @ 100 mls/hr IV ASDIRECTED [facility] Last Admin: 10/27/17 23:28 Dose: 100 mls/hr Insulin Aspart (Novolog) 0 unit SUBCUT QIDACANDBED [facility] PRN Reason: Protocol Last Admin: 10/28/17 08:38 Dose: Not Given Iopamidol (Isovue-300 (61%)) 116 ml IV . DIRECTED OSMAN Sodium Chloride (Saline Flush) 10 ml FLUSH ONETIME PRN PRN Reason: PER RADIOLOGY PROTOCOL - Exam Quality Assessment: No: Supplemental Oxygen General: Alert, Cooperative, No Acute Distress Neck: Supple Lungs: Normal Respiratory Effort Cardiovascular: Tachycardia GI/Abdominal Exam: Soft, No Distention Extremities: No Pedal Edema Skin: Warm, Dry Psy/Mental Status: Alert, Normal Affect - Problem List & Annotations (1) Acute cystitis SNOMED Code(s): 91193259 Code(s): N30.00 - ACUTE CYSTITIS WITHOUT HEMATURIA Status: Acute Current Visit: Yes Qualifiers: Hematuria presence: without hematuria Qualified Code(s): N30.00 - Acute cystitis without hematuria (2) Sepsis SNOMED Code(s): 10451126 Code(s): A41.9 - SEPSIS, UNSPECIFIED ORGANISM Status: Acute Current Visit : Yes Qualifiers: Sepsis type: sepsis due to unspecified organism Qualified Code(s): A41.9 - Sepsis, unspecified organism (3) Rectal adenocarcinoma SNOMED Code(s): 383125819 Code(s): C20 - MALIGNANT NEOPLASM OF RECTUM Status: Chronic Current Visit : Yes (4) Type 2 diabetes mellitus SNOMED Code(s): 82662137 Code(s): E11.9 - TYPE 2 DIABETES MELLITUS WITHOUT COMPLICATIONS Status: Chronic Current Visit: No Qualifiers: Diabetes mellitus complication status: with unspecified complications Diabetes mellitus penitentiary insulin use: with petroleum terminal plant operator use Qualified Code(s) : E11.8 - Type 2 diabetes mellitus with unspecified complications; Z79.4 - petroleum terminal plant operator (current) use of insulin; Z79.4 - [facility] (current) use of insulin; Z79.4 - petroleum terminal plant operator (current) use of insulin; Z79.4 - [facility] (current) use of insulin - Problem List Review Problem List Initiated/Reviewed/Updated: Yes - My Orders Last 24 Hours: My Active Orders 10/27/17 15:14 Resuscitation Status Routine 10/27/17 15:51 Patient Status [ADT] Routine Cardiac Monitoring [RC] Q6H Communication Order [RC] PRN Communication Order [RC] PRN Intake and Output [RC] QSHIFT Notify Provider Vital Signs [RC] ASDIRECTED Notify Provider [RC] PRN Oxygen Therapy [RC] PRN Pulse Oximetry [RC] CONTINUOUS Up With Assistance [RC] ASDIRECTED Vital Signs [RC] Q2HR Acetaminophen [Tylenol] 650 mg PO Q4H PRN Ibuprofen [Motrin] 600 mg PO Q6H PRN Ondansetron [Zofran ODT] 4 mg PO Q6H PRN Ondansetron [Zofran] 4 mg IV Q6H PRN Polyethylene Glycol 3350 [MiraLAX] 17 gm PO DAILY PRN 10/27/17 18:30 Piperacillin/Tazobactam/Dext [Zosyn in Dextrose Iso-Osmotic 3.375 GM] 3.375 gm Premix Bag 1 bag IV Q6H 10/27/17 21:00 Simvastatin [Zocor] 40 mg PO BEDTIME 10/27/17 Dinner Consistent Carbohydrate Diet [DIET] 10/28/17 08:00 metFORMIN [Glucophage] 1,000 mg PO BIDMEALS 10/28/17 08:45 Sodium Chloride 0.9% [Normal Saline] 1,000 ml IV ASDIRECTED 10/28/17 09:00 Enoxaparin [Lovenox] 40 mg SUBCUT DAILY Glimepiride [Amaryl] 1 mg PO DAILY Insulin Degludec [Tresiba Flextouch U-100] 14 unit SQ DAILY Magnesium Sulfate/Water [Magnesium Sulfate 2 GM in Water 50 ML] 2 gm Premix Bag 1 bag IV Q6H 10/28/17 16:30 GLUCOSE POC LAB TO COLLECT [POC] QIDACANDBED Potassium Chloride [Klor-Con M20] 40 meq PO BIDAC 10/28/17 21:00 GLUCOSE POC LAB TO COLLECT [POC] QIDACANDBED 10/29/17 05:00 BASIC METABOLIC PANEL,BMP [CHEM] Timed CBC W/O DIFF,HEMOGRAM [HEME] Timed (1) 10/29/17 07:30 GLUCOSE POC LAB TO COLLECT [POC] QIDACANDBED 10/29/17 11:30 GLUCOSE POC LAB TO COLLECT [POC] QIDACANDBED 10/29/17 16:30 GLUCOSE POC LAB TO COLLECT [POC] QIDACANDBED 10/29/17 21:00 GLUCOSE POC LAB TO COLLECT [POC] QIDACANDBED 10/30/17 07:30 GLUCOSE POC LAB TO COLLECT [POC] QIDACANDBED 10/30/17 11:30 GLUCOSE POC LAB TO COLLECT [POC] QIDACANDBED 10/30/17 16:30 GLUCOSE POC LAB TO COLLECT [POC] QIDACANDBED 10/30/17 21:00 GLUCOSE POC LAB TO COLLECT [POC] QIDACANDBED 10/31/17 07:30 GLUCOSE POC LAB TO COLLECT [POC] QIDACANDBED 10/31/17 11:30 GLUCOSE POC LAB TO COLLECT [POC] QIDACANDBED 10/31/17 16:30 GLUCOSE POC LAB TO COLLECT [POC] QIDACANDBED 10/31/17 21:00 GLUCOSE POC LAB TO COLLECT [POC] QIDACANDBED 11/01/17 07:30 GLUCOSE POC LAB TO COLLECT [POC] QIDACANDBED 11/01/17 11:30 GLUCOSE POC LAB TO COLLECT [POC] QIDACANDBED 11/01/17 16:30 GLUCOSE POC LAB TO COLLECT [POC] QIDACANDBED 11/01/17 21:00 GLUCOSE POC LAB TO COLLECT [POC] QIDACANDBED - Plan Plan:: ASSESSMENT AND PLAN - Acute cystitis with gram-negative bacteremia and sepsis syndrome - sepsis seems to have resolved lactic acidosis has improved. Urine and blood cultures are growing a gram-negative claudia. Kidney function improved compared to admission. Clinically looks better today. Case was discussed with urology. -Continue Pip/Tazo -Saline lock IV -Follow-up urine and blood cultures -Discussed case with urology, ureteral stent placement versus nephrostomy tube indicated if flank pain, unresolving infection or worsening renal function Rectal cancer, obstructing - He is 6 weeks out from surgery for diverting colostomy. From a surgery standpoint seems to be doing well. Has completed 1 round of chemotherapy. he is passing mucus-like substance from his rectum but has normal stool in the colostomy. -Hold chemotherapy -Outpatient follow-up Type 2 diabetes mellitus - Recently started on Trulicity and Tresiba. Also on 2 oral medications. sugars not well controlled at this time. -Plan to continue home medications other than the once weekly Trulicity -Medium-dose sliding scale insulin Maintenance issues - - DVT prophylaxis - enoxaparin, review in a.m. because platelets dropped today but remained above 100,000 - GI prophylaxis - not indicated - Nutrition - diabetic diet Disposition - anticipate discharge home after the hospital stay Medhat Hi M.D.
[2017-10-28] MEDS ORDERED: INSULIN DEGLUDEC 14 UNIT SQ SCH (09:00)
[2017-10-28] MEDS ORDERED: Non-Formulary Medication 1 Each (Simvastatin [Zocor] 40 MG) PO SCH (09:00)
[2017-10-28] MEDS ORDERED: GLIMEPIRIDE 1 MG PO SCH (09:00)
[2017-10-28] MEDS: Magnesium Sulfate/Water 2 GM in Premix Bag 1 BAG IV SCH ×3 (09:18→21:15)
[2017-10-28] MEDS: Megestrol Susp 40 MG/ML ML (240 ML Bottle) PO SCH (10:07)
[2017-10-28] MEDS: Potassium Chloride 20 MEQ Tab.ER PO SCH (16:21)
[2017-10-28] MEDS: TRESIBA FLEX TOUCH SUBCUT SCH (18:31)
[2017-10-28] MEDS: Simvastatin 20 MG Tab PO SCH (21:19)
[2017-10-28] MEDS ORDERED: Melatonin 3 MG Tab PO PRN (23:18)
[2017-10-29] MEDS: Piperacillin/Tazobactam/Dext 3.375 GM in Premix Bag 1 BAG IV SCH ×4 (05:43→23:54)
[2017-10-29] MEDS: Glimepiride 2 MG Tab PO SCH (08:14)
[2017-10-29] MEDS: Potassium Chloride 20 MEQ Tab.ER PO SCH (08:14)
[2017-10-29] MEDS: Insulin Aspart 100 Units/ML 3 ML Pen SUBCUT SCH ×4 (08:15→21:06)
[2017-10-29] MEDS: Aspirin 81 MG Tab.EC PO SCH (08:15)
[2017-10-29] MEDS: metFORMIN 500 MG Tab PO SCH ×2 (08:15→18:16)
[2017-10-29] MEDS: Enoxaparin 40 MG/0.4 ML Syringe SUBCUT SCH (08:16)
[2017-10-29] MEDS: Megestrol Susp 40 MG/ML ML (240 ML Bottle) PO SCH (08:16)
--- NOTE | 2017-10-29 09:33 | PCM.PN ---
- General Info Date of Service: 10/29/17 Functional Status: Reports: Pain Controlled, Tolerating Diet - Review of Systems General: Reports: Fever Gastrointestinal: Reports: Abdominal Pain Systems Review Comment:: Patient had difficulty with sleep again last night and was urinating frequently with small volumes. He did have some tachycardia when he was up to the bathroom but this seems better this morning. He reports some intermittent pain in the pelvis but does not currently have any flank pain. He continues to pass mucus- like stool from the rectum. Colostomy drainage has been loose. Low-grade temperature elevations. White blood cell count improving. Urine culture is growing pansensitive Escherichia coli. Blood cultures are growing a gram- negative rods with identification pending. - Patient Data Vitals - Most Recent: Last Vital Signs Temp 36.6 C 10/29/17 08:00 Pulse 81 10/29/17 08:00 Resp 20 10/29/17 08:00 BP 116/68 10/29/17 08:00 Pulse Ox 95 10/29/17 08:00 Weight - Most Recent: 75.795 kg I&O - Last 24 Hours: Intake & Output 10/28/17 10/29/17 10/29/17 22:59 06:59 14:59 Intake Total 664 1864 240 Output Total 1100 725 300 Balance -436 1139 -60 Lab Results Last 24 Hours: Laboratory Results - last 24 hr 10/29/17 10/29/17 Range/Units 05:20 05:20 WBC 8.2 (4.5-11.0) K/uL RBC 3.00 L (4.30-5.90) M/uL Hgb 9.0 L (12.0-15.0) g/dL Hct 26.4 L (40.0-54.0) % MCV 88 (80-98) fL MCH 30 (27-31) pg MCHC 34 (32-36) % Plt Count 141 L (150-400) K/uL Sodium 137 L (140-148) mmol/L Potassium 2.4 L* (3.6-5.2) mmol/L Chloride 102 (100-108) mmol/L Carbon Dioxide 24 (21-32) mmol/L Anion Gap 13.4 (5.0-14.0) mmol/L BUN 14 (7-18) mg/dL Creatinine 0.7 L (0.8-1.3) mg/dL Est Cr Clr Drug Dosing 116.16 mL/min Estimated GFR (MDRD) > 60 (>60) Glucose 136 H (74-106) mg/dL Calcium 9.1 (8.5-10.1) mg/dL Med Orders - Current: Current Medications Acetaminophen (Tylenol) 650 mg PO Q4H PRN PRN Reason: Pain (Mild 1-3)/fever Last Admin: 10/28/17 23:36 Dose: 650 mg Aspirin (Halfprin) 81 mg PO DAILY [facility] Last Admin: 10/29/17 08:15 Dose: 81 mg Enoxaparin Sodium (Lovenox) 40 mg SUBCUT DAILY [facility] Last Admin: 10/29/17 08:16 Dose: 40 mg Glimepiride (Amaryl) 1 mg PO DAILY [facility] Last Admin: 10/29/17 08:14 Dose: 1 mg Piperacillin/Tazobactam/ (Dextrose 3.375 gm/ Premix) 50 mls @ 100 mls/hr IV Q6H [facility] Last Admin: 10/29/17 05:43 Dose: 100 mls/hr Ibuprofen (Motrin) 600 mg PO Q6H PRN PRN Reason: Pain/Fever Last Admin: 10/28/17 09:15 Dose: 600 mg Insulin Aspart (Novolog) 0 unit SUBCUT WITHMEALSANDBED [facility] PRN Reason: Protocol Last Admin: 10/29/17 08:15 Dose: Not Given Megestrol Acetate (Megace 40 Mg/Ml Susp) 800 mg PO DAILY [facility] Last Admin: 10/29/17 08:16 Dose: 800 mg Melatonin (Melatonin) 9 mg PO BEDTIME PRN PRN Reason: Insomnia Last Admin: 10/28/17 23:27 Dose: 9 mg Metformin HCl (Glucophage) 1,000 mg PO BIDMEALS [facility] Last Admin: 10/29/17 08:15 Dose: 1,000 mg Ondansetron HCl (Zofran Odt) 4 mg PO Q6H PRN PRN Reason: Nausea able to take PO Ondansetron HCl (Zofran) 4 mg IV Q6H PRN PRN Reason: Nausea/Vomiting Oxycodone/Acetaminophen (Percocet 325-5 Mg) 1 - 2 tab PO Q4H PRN PRN Reason: PAIN Tresiba Flex Touch (Inj (Ptom)) 0 each SUBCUT Q24H [facility] Last Admin: 10/28/17 18:31 Dose: 1 each Polyethylene Glycol (Miralax) 17 gm PO DAILY PRN PRN Reason: Constipation Potassium Chloride (Klor-Con M20) 40 meq PO ONETIME ONE Stop: 10/29/17 13:01 Simvastatin (Zocor) 40 mg PO BEDTIME [facility] Last Admin: 10/28/17 21:19 Dose: 40 mg Discontinued Medications Acetaminophen (Tylenol) 650 mg PO NOW ONE Stop: 10/27/17 13:00 Last Admin: 10/27/17 13:15 Dose: 650 mg Hydromorphone HCl (Dilaudid) 0.5 mg IVPUSH ONETIME ONE Stop: 10/27/17 12:05 Last Admin: 10/27/17 12:56 Dose: 0.5 mg Sodium Chloride (Normal Saline) 1,000 mls @ 999 mls/hr IV ASDIRECTED [facility] Last Admin: 10/27/17 11:55 Dose: 999 mls/hr Sodium Chloride (Normal Saline) 1,000 mls @ 999 mls/hr IV ASDIRECTED [facility] Last Admin: 10/27/17 12:55 Dose: 999 mls/hr Piperacillin Sod/Tazobactam (Sod 3.375 gm/ Sodium Chloride) 50 mls @ 100 mls/ hr IV Q6H [facility] Last Admin: 10/27/17 13:15 Dose: 100 mls/hr Sodium Chloride (Normal Saline) 75 mls @ 3 mls/sec IV ONETIME ONE Stop: 10/27/17 13:51 Last Admin: 10/28/17 08:38 Dose: Not Given Sodium Chloride (Normal Saline) 1,000 mls @ 300 mls/hr IV ASDIRECTED [facility] Sodium Chloride (Normal Saline) 1,000 mls @ 100 mls/hr IV ASDIRECTED [facility] Last Admin: 10/27/17 23:28 Dose: 100 mls/hr Magnesium Sulfate 2 gm/ Premix 50 mls @ 25 mls/hr IV Q6H [facility] Stop: 10/28/17 22:59 Last Admin: 10/28/17 21:15 Dose: 25 mls/hr Sodium Chloride (Normal Saline) 1,000 mls @ 25 mls/hr IV ASDIRECTED [facility] Last Admin: 10/28/17 17:14 Dose: 25 mls/hr Insulin Aspart (Novolog) 0 unit SUBCUT QIDACANDBED [facility] PRN Reason: Protocol Last Admin: 10/28/17 08:38 Dose: Not Given Iopamidol (Isovue-300 (61%)) 116 ml IV . DIRECTED [facility] Potassium Chloride (Klor-Con M20) 40 meq PO BIDAC [facility] Stop: 10/29/17 07:31 Last Admin: 10/29/17 08:14 Dose: 40 meq Sodium Chloride (Saline Flush) 10 ml FLUSH ONETIME PRN PRN Reason: PER RADIOLOGY PROTOCOL - Exam Quality Assessment: No: Supplemental Oxygen General: Alert, Oriented, Cooperative, No Acute Distress Neck: Supple Lungs: Clear to Auscultation, Normal Respiratory Effort Cardiovascular: Regular Rate, Regular Rhythm GI/Abdominal Exam: Soft, No Distention, Tender, Other (colostomy LLQ) Extremities: No Pedal Edema Skin: Warm, Dry Psy/Mental Status: Alert, Normal Affect - Problem List & Annotations (1) Acute cystitis SNOMED Code(s): 79871688 Code(s): N30.00 - ACUTE CYSTITIS WITHOUT HEMATURIA Status: Acute Current Visit: Yes Qualifiers: Hematuria presence: without hematuria Qualified Code(s): N30.00 - Acute cystitis without hematuria (2) Sepsis SNOMED Code(s): 63844237 Code(s): A41.9 - SEPSIS, UNSPECIFIED ORGANISM Status: Acute Current Visit : Yes Qualifiers: Sepsis type: sepsis due to unspecified organism Qualified Code(s): A41.9 - Sepsis, unspecified organism (3) Rectal adenocarcinoma SNOMED Code(s): 249727101 Code(s): C20 - MALIGNANT NEOPLASM OF RECTUM Status: Chronic Current Visit : Yes (4) Type 2 diabetes mellitus SNOMED Code(s): 14821318 Code(s): E11.9 - TYPE 2 DIABETES MELLITUS WITHOUT COMPLICATIONS Status: Chronic Current Visit: No Qualifiers: Diabetes mellitus complication status: with unspecified complications Diabetes mellitus correction insulin use: with magazine editor use Qualified Code(s) : E11.8 - Type 2 diabetes mellitus with unspecified complications; Z79.4 - dba developer (current) use of insulin; Z79.4 - senior care (current) use of insulin; Z79.4 - dba developer (current) use of insulin; Z79.4 - senior care (current) use of insulin - Problem List Review Problem List Initiated/Reviewed/Updated: Yes - My Orders Last 24 Hours: My Active Orders 10/28/17 09:00 Enoxaparin [Lovenox] 40 mg SUBCUT DAILY Glimepiride [Amaryl] 1 mg PO DAILY 10/28/17 17:00 Insulin Aspart [NovoLOG] See Protocol SUBCUT WITHMEALSANDBED 10/28/17 18:30 Patient's Own Medication [Ptom] 0 each SUBCUT Q24H 10/28/17 23:18 Melatonin 9 mg PO BEDTIME PRN 10/29/17 09:27 Transfer Patient (Change bed) [ADT] Routine Discontinue Telemetry Monitoring [Cardiac Monitoring Discontinue] [RC] Click to Edit 10/29/17 09:29 Convert IV to Saline Lock [OM.PC] Routine 10/29/17 13:00 Potassium Chloride [Klor-Con M20] 40 meq PO ONETIME ONE 10/29/17 17:00 POTASSIUM,K [CHEM] Timed 10/30/17 05:00 BASIC METABOLIC PANEL,BMP [CHEM] Timed CBC W/O DIFF,HEMOGRAM [HEME] Timed (1) MAGNESIUM [CHEM] Timed 10/30/17 07:30 GLUCOSE POC LAB TO COLLECT [POC] QIDACANDBED 10/30/17 11:30 GLUCOSE POC LAB TO COLLECT [POC] QIDACANDBED 10/30/17 16:30 GLUCOSE POC LAB TO COLLECT [POC] QIDACANDBED 10/30/17 21:00 GLUCOSE POC LAB TO COLLECT [POC] QIDACANDBED 10/31/17 07:30 GLUCOSE POC LAB TO COLLECT [POC] QIDACANDBED 10/31/17 11:30 GLUCOSE POC LAB TO COLLECT [POC] QIDACANDBED 10/31/17 16:30 GLUCOSE POC LAB TO COLLECT [POC] QIDACANDBED 10/31/17 21:00 GLUCOSE POC LAB TO COLLECT [POC] QIDACANDBED 11/01/17 07:30 GLUCOSE POC LAB TO COLLECT [POC] QIDACANDBED 11/01/17 11:30 GLUCOSE POC LAB TO COLLECT [POC] QIDACANDBED 11/01/17 16:30 GLUCOSE POC LAB TO COLLECT [POC] QIDACANDBED 11/01/17 21:00 GLUCOSE POC LAB TO COLLECT [POC] QIDACANDBED - Plan Plan:: ASSESSMENT AND PLAN - Acute cystitis with gram-negative bacteremia and sepsis syndrome - sepsis has resolved. Urine culture growing pansensitive Escherichia coli. Blood cultures growing gram-negative rods with identification pending. He does have hydronephrosis noted on CT scan but kidney function stable and doing well. CT scan reviewed with the radiologist today and there is no strong evidence for fistula with the urinary tract noted. Urine sample today was reviewed and there is minimal sediment at this time. -Continue Pip/Tazo until blood cultures are final -Saline lock IV -Follow-up blood cultures -Discussed case with urology, ureteral stent placement versus nephrostomy tube indicated if flank pain, unresolving infection or worsening renal function Hypokalemia - significant hypokalemia noted this morning despite replacement yesterday. -Supplement potassium again today and recheck this evening -Also labs in the morning Rectal cancer, obstructing - He is 6 weeks out from surgery for diverting colostomy. From a surgery standpoint seems to be doing well. Has completed 1 round of chemotherapy. he is passing mucus-like substance from his rectum but has normal stool in the colostomy. -Hold chemotherapy -Outpatient follow-up Type 2 diabetes mellitus - Recently started on Trulicity and Tresiba. Also on 2 oral medications. sugars are well controlled today. -Plan to continue home medications other than the once weekly Trulicity -Low-dose sliding scale insulin Maintenance issues - - DVT prophylaxis - enoxaparin - GI prophylaxis - not indicated - Nutrition - diabetic diet Disposition - anticipate discharge home after the hospital stay, possibly tomorrow if stable overnight Medhat Hi M.D.
[2017-10-29] MEDS ORDERED: Diazepam 5 MG Tab PO PRN (09:41)
[2017-10-29] MEDS: Acetaminophen 325 MG Tab PO PRN (11:19)
[2017-10-29] MEDS ORDERED: Potassium Chloride 20 MEQ Tab.ER PO ONE ×2 (13:00→17:16)
[2017-10-29] MEDS ORDERED: Potassium Chloride 20 MEQ, Lidocaine 1% 2 ML in Sodium Chloride 0.9% 100 ML IV SCH (17:30)
[2017-10-29] MEDS ORDERED: Potassium Chloride 100 ML ONE (18:42)
[2017-10-29] MEDS: TRESIBA FLEX TOUCH SUBCUT SCH (18:55)
[2017-10-29] MEDS ORDERED: diphenhydrAMINE 25 MG Cap PO SCH (21:00)
[2017-10-29] MEDS ORDERED: Acetaminophen 500 MG Tab PO SCH (21:00)
[2017-10-29] MEDS: Simvastatin 20 MG Tab PO SCH (21:08)
[2017-10-30] MEDS ORDERED: Potassium Chloride 20 MEQ in Premix Bag 1 BAG IV ONE (05:24)
[2017-10-30] MEDS ORDERED: Potassium Chloride 20 MEQ Tab.ER PO ONE ×2 (05:24→09:30)
[2017-10-30] MEDS: Piperacillin/Tazobactam/Dext 3.375 GM in Premix Bag 1 BAG IV SCH ×2 (05:51→14:15)
--- NOTE | 2017-10-30 06:06 | PCM.SN ---
- Free Text/Narrative Note: time; 05:[address] [place] [address]; labs results. O: K+ 2.4, Mg++ 1.5 A: hypokalemia, hypomagnesium P: order Potassium IV 40 meq, PO 20meq, recheck Potassium at 1300 order Magnesium 800mg po daily continue present plan of care.
[2017-10-30] MEDS: Insulin Aspart 100 Units/ML 3 ML Pen SUBCUT SCH ×2 (08:02→12:46)
[2017-10-30] MEDS: metFORMIN 500 MG Tab PO SCH (08:03)
[2017-10-30] MEDS: Enoxaparin 40 MG/0.4 ML Syringe SUBCUT SCH (08:03)
[2017-10-30] MEDS: Aspirin 81 MG Tab.EC PO SCH (08:04)
[2017-10-30] MEDS: Glimepiride 2 MG Tab PO SCH (08:04)
[2017-10-30] MEDS: Megestrol Susp 40 MG/ML ML (240 ML Bottle) PO SCH (08:06)
[2017-10-30] MEDS ORDERED: Magnesium Oxide 400 MG Tab PO SCH (09:00)
[2017-10-30] MEDS ORDERED: Magnesium Sulfate/Water 2 GM in Premix Bag 1 BAG IV ONE (10:00)
--- NOTE | 2017-10-30 10:36 | PCM.DCSUM1 ---
Discharge Summary - Hospital Course Brief History: 62-year-old male with large rectal adenocarcinoma who recently completed a round of chemotherapy who presented with fever, lethargy and confusion. He was admitted for management of sepsis secondary to urinary tract infection. - Discharge Data Discharge Date: 10/30/17 Discharge Disposition: Home, Self-Care 01 Condition: Good - Discharge Diagnosis/Problem(s) (1) Acute cystitis SNOMED Code(s): 19661857 ICD Code: N30.00 - ACUTE CYSTITIS WITHOUT HEMATURIA Status: Acute Current Visit: Yes Qualifiers: Hematuria presence: without hematuria Qualified Code(s): N30.00 - Acute cystitis without hematuria (2) Sepsis SNOMED Code(s): 75001601 ICD Code: A41.9 - SEPSIS, UNSPECIFIED ORGANISM Status: Acute Current Visit: Yes Qualifiers: Sepsis type: Escherichia coli Qualified Code(s): A41.51 - Sepsis due to Escherichia coli [E. coli] (3) Rectal adenocarcinoma SNOMED Code(s): 512687961 ICD Code: C20 - MALIGNANT NEOPLASM OF RECTUM Status: Chronic Current Visit: Yes (4) Type 2 diabetes mellitus SNOMED Code(s): 11887333 ICD Code: E11.9 - TYPE 2 DIABETES MELLITUS WITHOUT COMPLICATIONS Status: Chronic Current Visit: No Qualifiers: Diabetes mellitus complication status: with unspecified complications Diabetes mellitus cane loader insulin use: with cane loader use Qualified Code(s) : E11.8 - Type 2 diabetes mellitus with unspecified complications; Z79.4 - irradiated fuel handler (current) use of insulin; Z79.4 - senior living (current) use of insulin; Z79.4 - senior living (current) use of insulin; Z79.4 - irradiated fuel handler (current) use of insulin (5) Hypokalemia, gastrointestinal losses SNOMED Code(s): 73022984 ICD Code: E87.6 - HYPOKALEMIA Status: Acute Current Visit: Yes - Patient Summary/Data Hospital Course: Hever presented to the emergency room with fever, lethargy and confusion. Workup in the emergency room was suggestive of a urinary tract infection with sepsis syndrome. We did get a CT scan of the abdomen and pelvis to rule out intra-abdominal abscess with recent surgical intervention and colostomy placement in the setting of large rectal carcinoma. There is no evidence for intra-abdominal infection but moderate hydroureter and hydronephrosis was noted bilaterally. There was no strong evidence to support a fistula between the cancer or colon and the urinary tract. He was empirically started on Zosyn after cultures were obtained. We did provide volume resuscitation for his sepsis. Lactic acid was initially mildly elevated and this did come down on the recheck after volume resuscitation. Over the first 24 hours he did show some improvement in his fever curve as well as clinical status. White blood cell count was trending down. Blood pressures remained stable. Mental status improved but had not normalized. Early in the hospital stay to move his blood cultures became positive for gram-negative rods and then within 24 hours all 4 bottles were positive for gram-negative rods. Over the second 24 hours of hospitalization he had further improvement in his clinical status and mental status. His urine culture did grow out a pansensitive Escherichia coli but blood cultures remained pending at this time. He did have hypokalemia which we supplemented but persistent hypokalemia was noted. We did also supplement magnesium during hospital stay. Over the next 24 hours we saw ongoing clinical improvement. Mental status returned to baseline. White blood cell count normalized and he has been afebrile for more than 24 hours. All 4 of his blood cultures also grew out a pansensitive Escherichia coli. Clinically he feels well and feels like he's ready for discharge to home. From an infection standpoint he is doing well. He does still have hypokalemia but has received quite a bit in the way of replacement during the hospital stay as well as this morning. He will be utilizing a high potassium diet to try to improve this level further after hospital discharge. I'm planning to send him home on ciprofloxacin for a total of 2 weeks of antibiotic therapy. With the moderate bilateral hydronephrosis noted on the CT scan I did discuss the case with the urology services at [facility]. They felt that indications for either ureteral stenting or nephrostomy tube placement would include moderate or severe flank pain, infection that would not resolve with IV antibiotics or worsening renal function. He did not have any of these difficulties during the hospital stay so no urgent referral for placement was made. Given his large rectal mass this may become an issue down the road so he was encouraged to seek medical attention if he should have difficulty with flank pain or recurrence of fevers. - Patient Instructions Diet: Regular Diet as Tolerated Activity: As Tolerated Showering/Bathing: May Shower Notify Provider of: Fever, Increased Pain, Nausea and/or Vomiting Other/Special Instructions: 1. You were in the hospital for management of a urinary tract infection caused by Escherichia coli. This infection was severe enough that you had sepsis syndrome. Your condition has been improving with antibiotic therapy. I do recommend 10 additional days of antibiotic therapy with ciprofloxacin because this was a complicated urinary tract infection. Your next dose is due tonight. Because you are on antibiotics I would recommend that you take a probiotic twice daily while you are taking the antibiotic and for a few days afterwards. You can ask your pharmacist to help you find a good probiotic while you are at the pharmacy. 2. During the hospital stay we discovered that your potassium level was low. Your level has remained low despite supplementation in the hospital. I would recommend that you eat a diet rich with potassium and I have included a list of potassium rich foods. You will have your potassium level rechecked at your follow-up visits. 3. Continue your other home medications as previously prescribed. 4. Please seek medical attention if he develops fever greater than 101, have severe abdominal pain, severe pain in either of your flank areas or if you develop persistent vomiting. - Discharge Plan Prescriptions/Med Rec: Ciprofloxacin [IJD: Ciprofloxacin HCl] 500 mg PO BID #20 tab Home Medications: Home Meds Aspirin [Adult Low Dose Aspirin EC] 81 mg PO DAILY 07/29/17 [History] Multivitamin with Minerals [Multiple Vitamin] 1 tab PO DAILY 07/29/17 [History] Probenecid 500 mg PO DAILY 07/29/17 [History] Simvastatin [Zocor] 40 mg PO DAILY 07/29/17 [History] metFORMIN [Glucophage] 1,000 mg PO BIDMEALS 07/29/17 [History] Glimepiride [Amaryl] 1 mg PO QAM 08/27/17 [History] Ibuprofen [Advil] 200 mg PO Q6HR PRN 08/27/17 [History] Potassium Chloride [K-Tab ER] 20 meq PO BID 08/27/17 [History] Acetaminophen/oxyCODONE [Percocet 325-5 MG] 1 - 2 tab PO Q4H PRN #40 tablet [Rx] Megestrol [Megace 40 MG/ML Susp] 800 mg PO DAILY ml 09/15/17 [Rx] Capecitabine [Xeloda] 1,500 mg PO ASDIRECTED 10/27/17 [History] Insulin Degludec [Tresiba Flextouch U-100] 14 unit SQ DAILY 10/27/17 [History] Magnesium Oxide [Magnesium] 500 mg PO 10/27/17 [History] Prochlorperazine [Compazine] 10 mg PO ASDIRECTED 10/27/17 [History] Ciprofloxacin [IJD: Ciprofloxacin HCl] 500 mg PO BID #20 tab 10/30/17 [Rx] Patient Handouts: Hypokalemia, Urinary Tract Infection, Adult, Potassium Content of Foods, Ciprofloxacin tablets Referrals: Iona Arevalo PA [Primary Care Provider] - (follow-up next week - follow- up hospital stay for Escherichia coli urinary tract infection with sepsis and hypokalemia) Tawanda Holt MD [Physician] - 11/07/17 9:30 am - Discharge Summary/Plan Comment DC Time >30 min.: Yes (35 - coordinating follow-up after discharge) - Patient Data Vitals - Most Recent: Last Vital Signs Temp 37.3 C 10/30/17 07:28 Pulse 79 10/30/17 07:28 Resp 16 10/30/17 07:28 BP 126/69 10/30/17 07:28 Pulse Ox 96 10/30/17 07:28 Weight - Most Recent: 75.795 kg I&O - Last 24 hours: Intake & Output 10/29/17 10/30/17 10/30/17 22:59 06:59 14:59 Intake Total 50 1000 Output Total 700 1295 350 Balance -072 -967 -851 Lab Results - Last 24 hrs: Laboratory Results - last 24 hr 10/29/17 10/30/17 10/30/17 Range/Units 16:58 04:20 04:20 WBC 8.1 (4.5-11.0) K/uL RBC 2.98 L (4.30-5.90) M/uL Hgb 8.9 L (12.0-15.0) g/dL Hct 26.1 L (40.0-54.0) % MCV 88 (80-98) fL MCH 30 (27-31) pg MCHC 34 (32-36) % Plt Count 155 (150-400) K/uL Sodium 139 L (140-148) mmol/L Potassium 2.6 L* 2.4 L* (3.6-5.2) mmol/L Chloride 104 (100-108) mmol/L Carbon Dioxide 23 (21-32) mmol/L Anion Gap 14.4 H (5.0-14.0) mmol/L BUN 12 (7-18) mg/dL Creatinine 0.8 (0.8-1.3) mg/dL Est Cr Clr Drug Dosing 101.64 mL/min Estimated GFR (MDRD) > 60 (>60) Glucose 99 (74-106) mg/dL Calcium 8.9 (8.5-10.1) mg/dL Magnesium 1.5 L (1.8-2.4) mg/dL Med Orders - Current: Current Medications Acetaminophen (Tylenol) 650 mg PO Q4H PRN PRN Reason: Pain (Mild 1-3)/fever Last Admin: 10/29/17 11:19 Dose: 650 mg Acetaminophen (Tylenol Extra Strength) 1,000 mg PO BEDTIME [facility] Last Admin: 10/29/17 21:07 Dose: 1,000 mg Aspirin (Halfprin) 81 mg PO DAILY [facility] Last Admin: 10/30/17 08:04 Dose: 81 mg Ciprofloxacin (Ciprofloxacin Hcl) 500 mg PO ONETIME ONE Stop: 10/30/17 11:01 Diazepam (Valium.) 5 mg PO BEDTIME PRN PRN Reason: Sleep Diphenhydramine HCl (Benadryl) 50 mg PO BEDTIME [facility] Last Admin: 10/29/17 21:07 Dose: 50 mg Enoxaparin Sodium (Lovenox) 40 mg SUBCUT DAILY [facility] Last Admin: 10/30/17 08:03 Dose: 40 mg Glimepiride (Amaryl) 1 mg PO DAILY [facility] Last Admin: 10/30/17 08:04 Dose: 1 mg Heparin Sodium (Porcine) (Heparin Lock Flush 100 Units/Ml) 500 units FLUSH ASDIRECTED PRN PRN Reason: IV Use Piperacillin/Tazobactam/ (Dextrose 3.375 gm/ Premix) 50 mls @ 100 mls/hr IV Q6H [facility] Last Admin: 10/30/17 05:51 Dose: 100 mls/hr Magnesium Sulfate 2 gm/ Premix 50 mls @ 25 mls/hr IV ONETIME ONE Stop: 10/30/17 11:59 Ibuprofen (Motrin) 600 mg PO Q6H PRN PRN Reason: Pain/Fever Last Admin: 10/28/17 09:15 Dose: 600 mg Insulin Aspart (Novolog) 0 unit SUBCUT QIDACANDBED [facility] PRN Reason: Protocol Last Admin: 10/30/17 08:02 Dose: Not Given Magnesium Oxide (Magnesium Oxide) 800 mg PO DAILY [facility] Megestrol Acetate (Megace 40 Mg/Ml Susp) 800 mg PO DAILY [facility] Last Admin: 10/30/17 08:06 Dose: 800 mg Melatonin (Melatonin) 9 mg PO BEDTIME PRN PRN Reason: Insomnia Last Admin: 10/28/17 23:27 Dose: 9 mg Metformin HCl (Glucophage) 1,000 mg PO BIDMEALS [facility] Last Admin: 10/30/17 08:03 Dose: 1,000 mg Ondansetron HCl (Zofran Odt) 4 mg PO Q6H PRN PRN Reason: Nausea able to take PO Ondansetron HCl (Zofran) 4 mg IV Q6H PRN PRN Reason: Nausea/Vomiting Oxycodone/Acetaminophen (Percocet 325-5 Mg) 1 - 2 tab PO Q4H PRN PRN Reason: PAIN Tresiba Flex Touch (Inj (Ptom)) 0 each SUBCUT Q24H [facility] Last Admin: 10/29/17 18:55 Dose: 1 each Polyethylene Glycol (Miralax) 17 gm PO DAILY PRN PRN Reason: Constipation Simvastatin (Zocor) 40 mg PO BEDTIME [facility] Last Admin: 10/29/17 21:08 Dose: 40 mg Discontinued Medications Acetaminophen (Tylenol) 650 mg PO NOW ONE Stop: 10/27/17 13:00 Last Admin: 10/27/17 13:15 Dose: 650 mg Hydromorphone HCl (Dilaudid) 0.5 mg IVPUSH ONETIME ONE Stop: 10/27/17 12:05 Last Admin: 10/27/17 12:56 Dose: 0.5 mg Sodium Chloride (Normal Saline) 1,000 mls @ 999 mls/hr IV ASDIRECTED [facility] Last Admin: 10/27/17 11:55 Dose: 999 mls/hr Sodium Chloride (Normal Saline) 1,000 mls @ 999 mls/hr IV ASDIRECTED [facility] Last Admin: 10/27/17 12:55 Dose: 999 mls/hr Piperacillin Sod/Tazobactam (Sod 3.375 gm/ Sodium Chloride) 50 mls @ 100 mls/ hr IV Q6H [facility] Last Admin: 10/27/17 13:15 Dose: 100 mls/hr Sodium Chloride (Normal Saline) 75 mls @ 3 mls/sec IV ONETIME ONE Stop: 10/27/17 13:51 Last Admin: 10/28/17 08:38 Dose: Not Given Sodium Chloride (Normal Saline) 1,000 mls @ 300 mls/hr IV ASDIRECTED [facility] Sodium Chloride (Normal Saline) 1,000 mls @ 100 mls/hr IV ASDIRECTED [facility] Last Admin: 10/27/17 23:28 Dose: 100 mls/hr Magnesium Sulfate 2 gm/ Premix 50 mls @ 25 mls/hr IV Q6H [facility] Stop: 10/28/17 22:59 Last Admin: 10/28/17 21:15 Dose: 25 mls/hr Sodium Chloride (Normal Saline) 1,000 mls @ 25 mls/hr IV ASDIRECTED [facility] Last Admin: 10/28/17 17:14 Dose: 25 mls/hr Potassium Chloride 20 meq/Lidocaine HCl 2 ml/ Sodium Chloride 112 mls @ 50 mls/ hr IV Q2H [facility] Stop: 10/29/17 19:29 Last Admin: 10/29/17 19:00 Dose: 50 mls/hr Potassium Chloride (Kcl 20 Meq In Water 100 Ml) Confirm Administered Dose 100 mls @ as directed .ROUTE .STK-MED ONE Stop: 10/29/17 18:43 Last Admin: 10/29/17 18:49 Dose: 20 meq Potassium Chloride 20 meq/ (Premix) 100 mls @ 50 mls/hr IV ONETIME ONE Stop: 10/30/17 07:23 Last Admin: 10/30/17 06:28 Dose: 50 mls/hr Insulin Aspart (Novolog) 0 unit SUBCUT QIDACANDBED [facility] PRN Reason: Protocol Last Admin: 10/28/17 08:38 Dose: Not Given Insulin Aspart (Novolog) 0 unit SUBCUT WITHMEALSANDBED [facility] PRN Reason: Protocol Last Admin: 10/29/17 13:08 Dose: Not Given Iopamidol (Isovue-300 (61%)) 116 ml IV . DIRECTED [facility] Lidocaine HCl (Xylocaine-Mpf 1%) Confirm Administered Dose 5 ml .ROUTE .STK-MED ONE Stop: 10/29/17 18:44 Last Admin: 10/29/17 18:50 Dose: 5 ml Potassium Chloride (Klor-Con M20) 40 meq PO BIDAC [facility] Stop: 10/29/17 07:31 Last Admin: 10/29/17 08:14 Dose: 40 meq Potassium Chloride (Klor-Con M20) 40 meq PO ONETIME ONE Stop: 10/29/17 13:01 Last Admin: 10/29/17 13:14 Dose: 40 meq Potassium Chloride (Klor-Con M20) 40 meq PO ONETIME ONE Stop: 10/29/17 17:17 Last Admin: 10/29/17 18:47 Dose: 40 meq Potassium Chloride (Klor-Con M20) 40 meq PO ONETIME ONE Stop: 10/30/17 05:25 Last Admin: 10/30/17 05:51 Dose: 40 meq Potassium Chloride (Klor-Con M20) 40 meq PO ONETIME ONE Stop: 10/30/17 09:31 Sodium Chloride (Saline Flush) 10 ml FLUSH ONETIME PRN PRN Reason: PER RADIOLOGY PROTOCOL - Exam Quality Assessment: Denies: Supplemental Oxygen General: Reports: Alert, Oriented, Cooperative, No Acute Distress Neck: Reports: Supple Lungs: Reports: Normal Respiratory Effort GI/Abdominal Exam: Soft, No Distention, Other (colostomy left lower quadrant) Extremities: No Pedal Edema Skin: Reports: Warm, Dry Psy/Mental Status: Reports: Alert, Normal Affect *Q Meaningful Use (DIS) - VTE *Q VTE Criteria *Q: - Stroke *Q Stroke Criteria *Q: - AMI *Q AMI Criteria *Q:
[2017-10-30] MEDS ORDERED: Ciprofloxacin 500 MG Tab PO ONE (11:00)
== END 2017-10-30 13:30 | disposition home or self-care (01) | DRG 872 ==
LOC: JP.ED 11:35 → UNDOADMIN 15:11 → JP.ICU 15:11 → JP.MS 10-29 13:58
PROVIDERS: ADMIT Internal Medicine; ATTEND Internal Medicine
DX: A41.51 Sepsis due to Escherichia coli [E. coli] (principal); N30.00 Acute cystitis without hematuria; C20 Malignant neoplasm of rectum; E11.9 Type 2 diabetes mellitus without complications; E87.6 Hypokalemia; Z79.4 Long term (current) use of insulin; Z79.899 Other long term (current) drug therapy; E78.00 Pure hypercholesterolemia, unspecified
CPT/HCPCS: 36415; 51798; 71045; 71045-26; 74177; 74177-26; 80048; 80053; 81001; 82962; 83605; 83735; 84132; 85025; 85027; 87040; 87077; 87086; 87088; 87186; 93005; 96361; 96365; 96375; 99285-25; A9270-GY; J1170; J1650; J2543; J3475; J3480; J7030; J7040; J7050

== ENCOUNTER 2018-03-10 06:41 | Day surgery (SDC) | payer MEDICAID ==
[~2018-03-10 06:41] MED LIST changes: -Acetaminophen 500 MG Tab PO ONE; -Bupivacaine 0.5% 50 ML MDV ONE; -Celecoxib 200 MG Cap PO ONE; +Dextrose 5%-Lactated Ringers 1,000 ML IV SCH; -Lidocaine 1% with EPINEPHrine 1:100,000 50 ML MDV ONE; -Scopolamine 1.5 MG Transdermal Patch TRDERM SCH
[2018-03-10] MEDS ORDERED: Dextrose 5%-Lactated Ringers 1,000 ML IV SCH (07:00)
[2018-03-10] MEDS ORDERED: fentaNYL 100 MCG/2 ML SDV ONE (07:18)
[2018-03-10] MEDS ORDERED: Midazolam 1 MG/ML 2 ML SDV ONE (07:18)
[2018-03-10] MEDS ORDERED: Propofol 200 MG/20 ML SDV ONE ×2 (07:18→09:32)
--- NOTE | 2018-03-16 13:37 | OR ---
DATE OF PROCEDURE: 03/10/2018 PREOPERATIVE DIAGNOSIS: History of rectal carcinoma with recent bleeding and a desire to establish the microsatellite instability status of the tumor. The potential risks including bleeding and perforation were discussed, and the patient wishes to proceed. DETAILS OF PROCEDURE: The patient was taken to the operating room and placed in the supine position. The colostomy apparatus was then taken down and initial digital exam confirmed patent lumens in both proximal and distal directions. The scope was then passed distally. This came down to the area of the tumor in the rectum, which was somewhat smaller than initially identified. There were some bruising and some old blood on the surface, but no active bleeding, so they could be the likely cause of the patient's bleeding. Multiple biopsies were obtained from that area and sent for histologic evaluation. To compare those with more normal mucosa, additional colorectal biopsies in grossly normal mucosa were obtained and sent as a separate specimen. Minimal bleeding from the biopsy sites was seen, and the procedure was then concluded. The patient was taken to the recovery room in a satisfactory condition. Geovanni Malik MD /[id number]
== END 2018-03-10 11:08 | disposition home or self-care (01) ==
LOC: JP.SDS 06:41
PROVIDERS: ATTEND Surgery
DX: D12.8 Benign neoplasm of rectum (principal); E11.9 Type 2 diabetes mellitus without complications; Z85.048 Personal history of other malignant neoplasm of rectum, rectosigmoid junction, and anus
CPT/HCPCS: 45331; 88305; J1642; J2250; J2704; J3010; J7042